=== PATIENT | male | born 1950 | race Caucasian/White ===

== ENCOUNTER 2021-09-02 17:22 | Inpatient (IN) | payer MEDICAID, SELFPAY ==
--- NOTE | ~2021-09-02 | XR_ITS ---
EXAMINATION: XR CHEST CLINICAL INFORMATION: Fever COMPARISON: None TECHNIQUE: Frontal view of the chest was obtained. FINDINGS: No airspace consolidation. No pleural effusion or pneumothorax. Cardiomediastinal silhouette is within normal limits no evidence of pulmonary edema. No acute osseous injury identified. XR/XR chest 1V IMPRESSION: No acute pulmonary process.
--- NOTE | ~2021-09-02 | CT_ITS ---
EXAMINATION: CT HEAD WITHOUT CONTRAST CLINICAL INFORMATION: Altered mental status, evaluate for stroke. COMPARISON: None. TECHNIQUE: Contiguous axial imaging was performed from the skull base to vertex without intravenous administration of contrast. This CT examination was performed using dose optimization techniques as appropriate, variously including the following: *Automated exposure control *Adjustment of mA and/or kV according to patient size (this includes techniques or standardized protocols for targeted exams where dose is matched to indication/reason for exam; i.e. extremities or head) *Use of iterative reconstruction technique DLP: 503 mGy-cm FINDINGS: Age indeterminate small hypodensity in the left thalamus (13:26). There is no evidence of acute intracranial hemorrhage or edematous territorial infarction. Scattered hypoattenuation in the periventricular and deep white matter are consistent with moderate microangiopathy. Mendes-white matter differentiation is preserved. Proportional prominence of the ventricles and sulcal spaces. No evidence for obstructive hydrocephalus. No abnormal mass effect or midline shift. No extra-axial fluid collections. No acute soft tissue or osseous abnormalities. The mastoid air cells and paranasal sinuses are clear. CT/CT head/brain wo con IMPRESSION: Age indeterminate small infarct in the left thalamus. No prior images are available for comparison. For further characterization recommend correlation with an MR of the brain if clinically deemed appropriate. This critical result was discussed with Thong Tavarez MD at 09/03/2021 10:52 AM and it was ascertained that the content and urgency of the report was understood at the time of direct communication.
--- NOTE | ~2021-09-02 | CT_ITS ---
EXAMINATION: CT ABDOMEN AND PELVIS WITHOUT CONTRAST CLINICAL INFORMATION: Sepsis, evaluate for source. COMPARISON: None. TECHNIQUE: Multidetector volumetric imaging was performed from the superior aspect of the liver through the pubic symphysis. Sagittal and coronal reformatted images were obtained on the technologist's workstation. This CT examination was performed using dose optimization techniques as appropriate, variously including the following: *Automated exposure control *Adjustment of mA and/or kV according to patient size (this includes techniques or standardized protocols for targeted exams where dose is matched to indication/reason for exam; i.e. extremities or head) *Use of iterative reconstruction technique DLP: 503 mGy-cm FINDINGS: LUNG BASES: Motion limits evaluation of small pulmonary nodules and parenchymal details. Accounting for these limitations, there are questionable multifocal patchy opacities and bronchial wall thickening in the lower lobes. Coronary calcifications partially imaged. Bilateral symmetric gynecomastia noted. LIVER, GALLBLADDER, AND BILIARY TREE: Limited examination secondary to artifacts from positioning of the upper extremities and lack of intravenous. Accounting for these limitations, no discrete focal liver abnormalities noted. The gallbladder is distended without evidence of radiopaque calculi, wall thickening or pericholecystic free fluid. No biliary ductal dilatation. PANCREAS: Limited noncontrast examination, unremarkable. SPLEEN: Limited noncontrast examination, unremarkable. ADRENAL GLANDS: No adrenal lesion. KIDNEYS AND URETERS: Limited noncontrast examination with moderate right hydroureteronephrosis up to the level of the urinary bladder. An obstructive calculus is not visualized. Normal appearance of the left kidney. No perinephric fat stranding. BLADDER: Displaced to the right by large rectal distention. No intraluminal calculi or significant perivesical fat stranding. GASTROINTESTINAL TRACT: Large amount of stool in the rectum with mild rectal wall thickening and perirectal fat stranding. The stomach and the small bowel are nondilated. The appendix is not well-visualized, however there are no regional inflammatory changes to suspect acute appendicitis. ABDOMINAL WALL: No significant hernia is appreciated. Mild asymmetric anasarca along the soft tissues of the left gluteal region. LYMPH NODES: Evaluation of lymph nodes is limited due to paucity of intra-abdominal fat and lack of intravenous contrast. However, accounting for these limitations, no bulky lymphadenopathy is noted. VASCULAR: Aortoiliac atherosclerosis. The abdominal aorta is of normal diameter. PELVIC VISCERA: Enlarged prostate with coarse calcifications. OSSEOUS STRUCTURES: Degenerative changes of the spine. No acute or aggressive-appearing osseous abnormalities. CT/CT abdomen pelvis wo con IMPRESSION: 1. Large amount of rectal stool content with wall thickening and perirectal fat stranding suggesting stercoral colitis in the appropriate clinical context. 2. Moderate right hydroureteronephrosis up to the level of the urinary bladder, possibly due to reflux or mass effect from the significantly distended rectum as a discrete obstructive calculus is not identified. 3. Query patchy airspace opacities in the lung bases, limitedly assessed due to motion, correlate for signs of a respiratory infectious or inflammatory process.
--- NOTE | ~2021-09-02 | US_ITS ---
EXAMINATION: RENAL ULTRASOUND RIGHT CLINICAL INFORMATION: Follow-up hydronephrosis COMPARISON: Previous CT 09/03/2021 TECHNIQUE: Grayscale and color imaging of the right kidney FINDINGS: Right kidney is normal in size and contour and measures 11 x 6.6 x 5.2 cm. Renal cortical thickness and echogenicity is normal. There is question of a small 2 mm stone in the midpole. There is no hydronephrosis, renal mass or perinephric collection. US/US renal RT IMPRESSION: No right hydronephrosis. Question small right renal stone.
--- NOTE | 2021-09-02 17:36 | ED_ITS ---
HPI - Altered Mental Status General Chief Complaint: General Medical Stated Complaint: UNRESPOSIVE Time Seen by Provider: 09/02/21 17:36 Source: EMS Mode of arrival: EMS Limitations: altered mental status History of Present Illness HPI narrative: patient is nonverbal coming from the intermediate, the last 2 days he is worse. No history of fever. complaint: decreased responsiveness Onset (ago): day(s) Severity: moderate Context: other (intermediate resident) Related Data Home Medications Medication Instructions Recorded Confirmed acetaminophen 500 mg tablet 1,000 mg PO TID 09/02/21 09/02/21 benztropine 0.5 mg tablet 0.5 mg PO BID 09/02/21 09/02/21 cholecalciferol (vitamin D3) 1,250 1,250 mcg PO QMONTH 09/02/21 09/02/21 mcg (50,000 unit) capsule gabapentin 400 mg capsule 400 mg PO TID 09/02/21 09/02/21 lactulose 10 gram/15 mL oral 30 ml PO DAILY 09/02/21 09/02/21 solution lorazepam 1 mg tablet 1 mg PO TID 09/02/21 09/02/21 omeprazole 40 mg capsule,delayed 40 mg PO DAILY 09/02/21 09/02/21 release risperidone 2 mg tablet 2 mg PO BID 09/02/21 09/02/21 Allergies Allergy/AdvReac Type Severity Reaction Status Date / Time No Known Allergies Allergy Verified 09/02/21 17:53 Review of Systems Review of Systems: Yes Unobtainable due to mental status PMFSH Social History Social History Advance Directives: No Advance Directives Information Provided: No Physical Exam ED Vital Signs: Vital Signs - 24 hr 09/02/21 17:45 09/02/21 17:51 09/02/21 19:14 Temperature 101.0 F H 99.1 F Pulse Rate 43 L 120 H Respiratory Rate 14 21 H Blood Pressure 130/65 134/69 Pulse Oximetry 95 97 Oxygen Delivery Method Room Air Room Air 09/02/21 20:15 09/02/21 22:00 Temperature 98.6 F Pulse Rate 110 H 111 H Respiratory Rate 22 H 19 Blood Pressure 113/53 L 118/71 Pulse Oximetry 97 96 Oxygen Delivery Method Room Air Room Air BMI result Body Mass Index 19.9 Const Other: contracted non verbal, cachectic, frail Limitations: altered mental status HENMT Other: very dry oral pharynx Head: Yes normal to inspection Ears: external ears normal General nose exam: Normal external nose present Throat: Yes posterior oropharynx normal Eyes General: appearance normal, both eyes and all related structures Neck Neck: Yes normal visual inspection Chest Chest palpation & inspection: normal inspection of the chest Resp Auscultation: clear to auscultation bilaterally Cardio Jugular venous distension: no JVD Rate: regular rate Rhythm: regular rhythm Heart sounds: S1 normal heart sound present and S2 normal heart sound present GI Inspection: Yes normal to inspection Palpation (GI): Soft to palpation, nontender and No hepatosplenomegaly present Auscultation: normal bowel sounds General: Yes no CVA tenderness Back/Spine/Pelvis Back: no CVA tenderness Skin General skin exam: no rashes or lesions noted Extrem Other: contracted Psych Appearance: grossly normal MDM - Altered Mental Status Lab Data Result diagrams: 09/02/21 18:00 09/02/21 23:15 Labs: Lab Results 09/02/21 09/02/21 09/02/21 Range/Units 18:00 18:00 18:15 WBC 17.1 H (4.8-10.8) X10*3/uL RBC 5.27 (4.60-5.80) X10*6/uL Hgb 16.6 (14.0-18.0) g/dl Hct 53.7 H (42.0-52.0) % MCV 101.9 H (80.0-98.0) fL MCH 31.5 (27.0-33.0) pg MCHC 30.9 L (31.0-36.0) g/dl RDW 13.9 (11.0-16.0) % Plt Count 133 L (160-400) X10*3/uL MPV 13.2 H (9.4-12.4) fL Immature Gran % (Auto) 0.4 (0.0-0.4) % Neut % (Auto) 86.8 H (45-73) % Lymph % (Auto) 7.6 L (20-40) % [place] % (Auto) 5.1 (2-11) % Eos % (Auto) 0.0 (0-4) % Baso % (Auto) 0.1 (0-2) % Lymph # (Auto) 1.3 (1.2-4.9) X10*3/uL [place] # (Auto) 0.9 (0.1-1.2) X10*3/uL Eos # (Auto) 0.0 (0.0-0.4) X10*3/uL Baso # (Auto) 0.0 (0.0-0.2) X10*3/uL Abs Immat Gran (auto) 0.07 H (0.00-0.03) X10*3/uL Absolute Neuts (auto) 14.9 H (2.0-8.3) x10*3/uL Absolute Nucleated RBC 0.000 (0.0-0.012) X10*3/uL Nucleated RBC % (auto) 0.0 (0.0-0.2) /100WBC PT 14.9 H (10.0-13.1) SEC INR 1.3 H (0.9-1.1) APTT 26.4 (26.0-36.4) SEC Lactic Acid (0.5-2.0) mmol/L Troponin I High Sens 76.5 H (<3.5-35.0) ng/L Urine Color Urine Appearance Urine pH (5.0-8.0) Ur Specific [place] (1.005-1.025) Urine Protein (NEG-TRACE) MG/DL Urine Glucose (UA) (NEG) MG/DL Urine Ketones (NEG) MG/DL Urine Blood (NEG) Urine Nitrite (NEG) Ur Leukocyte Esterase (NEG) Urine RBC (0) /HPF Urine WBC (0-4) /HPF Ur Squamous Epith Cells /LPF Calcium Oxalate Crystal /LPF Urine Bacteria /LPF COVID-19 (CARLA) (Negative) COVID-19 Clin Com 09/02/21 09/02/21 09/02/21 Range/Units 18:41 20:33 21:40 WBC (4.8-10.8) X10*3/uL RBC (4.60-5.80) X10*6/uL Hgb (14.0-18.0) g/dl Hct (42.0-52.0) % MCV (80.0-98.0) fL MCH (27.0-33.0) pg MCHC (31.0-36.0) g/dl RDW (11.0-16.0) % Plt Count (160-400) X10*3/uL MPV (9.4-12.4) fL Immature Gran % (Auto) (0.0-0.4) % Neut % (Auto) (45-73) % Lymph % (Auto) (20-40) % [place] % (Auto) (2-11) % Eos % (Auto) (0-4) % Baso % (Auto) (0-2) % Lymph # (Auto) (1.2-4.9) X10*3/uL [place] # (Auto) (0.1-1.2) X10*3/uL Eos # (Auto) (0.0-0.4) X10*3/uL Baso # (Auto) (0.0-0.2) X10*3/uL Abs Immat Gran (auto) (0.00-0.03) X10*3/uL Absolute Neuts (auto) (2.0-8.3) x10*3/uL Absolute Nucleated RBC (0.0-0.012) X10*3/uL Nucleated RBC % (auto) (0.0-0.2) /100WBC PT (10.0-13.1) SEC INR (0.9-1.1) APTT (26.0-36.4) SEC Lactic Acid 5.1 H* (0.5-2.0) mmol/L Troponin I High Sens (<3.5-35.0) ng/L Urine Color Urine Appearance Urine pH (5.0-8.0) Ur Specific [place] (1.005-1.025) Urine Protein (NEG-TRACE) MG/DL Urine Glucose (UA) (NEG) MG/DL Urine Ketones (NEG) MG/DL Urine Blood (NEG) Urine Nitrite (NEG) Ur Leukocyte Esterase (NEG) Urine RBC (0) /HPF Urine WBC (0-4) /HPF Ur Squamous Epith Cells /LPF Calcium Oxalate Crystal /LPF Urine Bacteria /LPF COVID-19 (CARLA) Invalid Negative (Negative) COVID-19 Clin Com See Note See Note 09/02/21 09/02/21 Range/Units 22:14 22:35 WBC (4.8-10.8) X10*3/uL RBC (4.60-5.80) X10*6/uL Hgb (14.0-18.0) g/dl Hct (42.0-52.0) % MCV (80.0-98.0) fL MCH (27.0-33.0) pg MCHC (31.0-36.0) g/dl RDW (11.0-16.0) % Plt Count (160-400) X10*3/uL MPV (9.4-12.4) fL Immature Gran % (Auto) (0.0-0.4) % Neut % (Auto) (45-73) % Lymph % (Auto) (20-40) % [place] % (Auto) (2-11) % Eos % (Auto) (0-4) % Baso % (Auto) (0-2) % Lymph # (Auto) (1.2-4.9) X10*3/uL [place] # (Auto) (0.1-1.2) X10*3/uL Eos # (Auto) (0.0-0.4) X10*3/uL Baso # (Auto) (0.0-0.2) X10*3/uL Abs Immat Gran (auto) (0.00-0.03) X10*3/uL Absolute Neuts (auto) (2.0-8.3) x10*3/uL Absolute Nucleated RBC (0.0-0.012) X10*3/uL Nucleated RBC % (auto) (0.0-0.2) /100WBC PT (10.0-13.1) SEC INR (0.9-1.1) APTT (26.0-36.4) SEC Lactic Acid (0.5-2.0) mmol/L Troponin I High Sens 73.0 H (<3.5-35.0) ng/L Urine Color YELLOW Urine Appearance CLEAR Urine pH 5.5 (5.0-8.0) Ur Specific [place] >= 1.030 H (1.005-1.025) Urine Protein NEG (NEG-TRACE) MG/DL Urine Glucose (UA) 100 H (NEG) MG/DL Urine Ketones 5 (NEG) MG/DL Urine Blood 3+ H (NEG) Urine Nitrite NEG (NEG) Ur Leukocyte Esterase NEG (NEG) Urine RBC 76-150 H (0) /HPF Urine WBC 0-2 (0-4) /HPF Ur Squamous Epith Cells TRACE /LPF Calcium Oxalate Crystal TRACE /LPF Urine Bacteria TRACE /LPF COVID-19 (CARLA) (Negative) COVID-19 Clin Com Imaging Data Chest x-ray: Radiologist's impression: FINDINGS: No airspace consolidation. No pleural effusion or pneumothorax. Cardiomediastinal silhouette is within normal limits no evidence of pulmonary edema. No acute osseous injury identified. XR/XR chest 1V IMPRESSION: No acute pulmonary process. ? ECG Data ECG #1: Attestation: I personally reviewed and interpreted this ECG as follows: Interpretation: sinus 110 with PVCs, no st or twave changes Discharge Plan Discharge Clinical Impression: Sepsis Patient Disposition: Admitted As Inpatient
[2021-09-02 17:45] VITALS: BP 130/65; PULSE 43; RESP 14; O2SAT 95; BMI 19.9
[2021-09-02 17:51] VITALS: TEMP 38.3
[2021-09-02] MEDS: Acetaminophen Supp 650 MG SUPP.RECT PR (18:05)
[2021-09-02 18:07] LABS: MANUAL DIFF FLAG NO
[2021-09-02 18:30] LABS: Basophils Percent Auto 0.1 % (0-2); SCAN SMEAR FLAG 1
[2021-09-02 18:32] LABS: Hematocrit 53.7 % (42.0-52.0); Hemoglobin 16.6 g/dl (14.0-18.0); Imm Gran Abs Auto 0.07 X10*3/uL (0.00-0.03); Imm Gran Pct Auto 0.4 % (0.0-0.4); Lymphocytes Absolute Auto 1.3 X10*3/uL (1.2-4.9); Lymphocytes Percent Auto 7.6 % (20-40); Mean Corpuscular HGB Conc 30.9 g/dl (31.0-36.0); Mean Corpuscular Hemoglobin 31.5 pg (27.0-33.0); Mean Corpuscular Volume 101.9 fL (80.0-98.0); Mean Platelet Volume 13.2 fL (9.4-12.4); Monocytes Absolute Auto 0.9 X10*3/uL (0.1-1.2); Monocytes Percent Auto 5.1 % (2-11); Neutrophils Absolute Auto 14.9 x10*3/uL (2.0-8.3); Neutrophils Percent Auto 86.8 % (45-73); Platelet Count 133 X10*3/uL (160-400); Red Blood Count 5.27 X10*6/uL (4.60-5.80); Red Cell Distribution Width 13.9 % (11.0-16.0); White Blood Count 17.1 X10*3/uL (4.8-10.8)
[2021-09-02 18:41] LABS: PLT ABN DIST 1
[2021-09-02 18:47] LABS: INTERNATIONAL NORM RATIO 1.3 (0.9-1.1); Prothrombin Time 14.9 SEC (10.0-13.1)
[2021-09-02 18:50] LABS: Partial Thromboplastin Time 26.4 SEC (26.0-36.4)
--- NOTE | 2021-09-02 19:04 | PC.NURSE ---
Assumed care of this pt. at 1900 - report from Dorothy Armas RN
--- NOTE | 2021-09-02 19:10 | ECG_ITS ---
Test Reason : cp Blood Pressure : / mmHG Vent. Rate : 116 BPM Atrial Rate : 116 BPM P-R Int : 124 ms QRS Dur : 090 ms QT Int : 326 ms P-R-T Axes : 080 045 113 degrees QTc Int : 453 ms Sinus tachycardia with Premature supraventricular complexes and with occasional Premature ventricular complexes Nonspecific T wave abnormality Abnormal ECG No previous ECGs available Referred By: Jj Singh Electronically Signed By:JOHANNA HERNANDEZ
[2021-09-02 19:14] VITALS: BP 134/69; PULSE 120; RESP 21; TEMP 37.3; O2SAT 97
[2021-09-02 19:41] LABS: Lactic Acid 5.1 mmol/L (0.5-2.0)
[2021-09-02 19:42] LABS: Troponin-I High Sensitivity 76.5 ng/L (<3.5-35.0)
[2021-09-02] MEDS: Piperacillin Sodium/Tazobactam 3.375 GM in 0.9 % Sodium Chloride 50 ML IV (19:59)
[2021-09-02] MEDS: vancomycin HCL 1,500 MG in 0.9 % Sodium Chloride 500 ML 333.33 MG IV (20:08)
[2021-09-02 20:15] VITALS: BP 113/53; PULSE 110; RESP 22; TEMP 37; O2SAT 97
--- NOTE | 2021-09-02 20:21 | PHA.MEDREC ---
Pharmacy Consult ? Medication Reconciliation Pharmacy has completed the medication reconciliation.
[2021-09-02 21:03] LABS: Reflex Lactate? Lactic Acid Added
--- NOTE | 2021-09-02 21:07 | HE.PHANOTE ---
RE BMP RESULTS CALLED LAB SINCE BMP HAS BEEN PENDING FOR ALMOST 3 HOURS. PER LAB, ED WAS CALLED TWICE TO REDRAW. I CALLED ED AT 2100 AND EXPLAINED I NEEDED SCR TO PROPERLY DOSE VANCOMYCIN PER PROTOCOL. WILL WAIT UNTIL 2300 TO SEE IF LAB IS RAN. THANKS KARYN
[2021-09-02 21:09] LABS: COVID-19 Test Invalid (Negative); IDNOW Serial# 55D5AD1C
--- NOTE | 2021-09-02 21:50 | PC.NURSE ---
Lab draws delayed a this time d/t techs and RNs being unable to draw pt.
[2021-09-02 22:00] VITALS: BP 118/71; PULSE 111; RESP 19; O2SAT 96
[2021-09-02 22:08] LABS: COVID-19 Test Negative (Negative)
--- NOTE | 2021-09-02 22:11 | PC.NURSE ---
OK for Q2hrs VS per Juan Singh MD
[2021-09-02 22:53] LABS: Appearance Urine CLEAR; Color Urine YELLOW; Glucose Urine UA 100 MG/DL (NEG); Leukocyte Esterase Urine NEG (NEG); Nitrite Urine NEG (NEG); PH 5.5 (5.0-8.0); Specific Gravity - Urine >= 1.030 (1.005-1.025); UACC Culture Trigger NO; Urine Blood 3+ (NEG); Urine Ketones 5 MG/DL (NEG); Urine Protein NEG (NEG-TRACE)
[2021-09-02 23:20] LABS: Bacteria Urine TRACE /LPF; Calcium Oxalate Crystals Urine TRACE /LPF; Squamous Epithelial Cell Urine TRACE /LPF; WBC Urine 0-2 /HPF (0-4)
[2021-09-02 23:48] LABS: Troponin-I High Sensitivity 71.4 ng/L (<3.5-35.0)
[2021-09-02 23:53] LABS: ~Lactic Acid-LAB USE ONLY 3.3 mmol/L (0.5-2.0)
[2021-09-02 23:57] LABS: Alanine Aminotransferase 21 U/L (0-40); Albumin Level 3.5 g/dL (3.5-5.0); Alkaline Phosphatase 68 U/L (39-117); Anion Gap 20 (12-20); Aspartate Amino Transferase 16 U/L (5-37); Bilirubin Direct 0.6 mg/dL (0.0-0.5); Bilirubin Total 1.3 mg/dL (0.0-1.0); Calcium 8.6 mg/dL (8.4-10.2); Carbon Dioxide 23 mmol/L (22-29); Chloride 129 mmol/L (96-108); Creatinine Clr Calc Pharmacy 16.5; Estimated Glomerular Filt Rate 19; Glucose Random 438 mg/dL (60-115); Potassium 3.9 mmol/L (3.3-5.1); Sodium 168 mmol/L (135-145)
[2021-09-03] VITALS: BP 134/41; PULSE 113; RESP 22; TEMP 36.9; O2SAT 97
[2021-09-03 00:25] LABS: Blood Urea Nitrogen 127 mg/dL (9-16)
[2021-09-03] MEDS: Insulin Regular, Human 100 UNIT/ML 3 ML VIAL 10 UNIT IVPUSH (00:32)
[2021-09-03] MEDS: 0.9 % Sodium Chloride 1,000 ML 999 ML IV (00:36)
[2021-09-03 01:21] LABS: Reflex Lactate? 2 Y
--- NOTE | 2021-09-03 01:46 | PC.NURSE ---
Pt. noted to be clammy and cold to touch. Checked POC which was 274. Re-checking rectal temp. now - see Vital Signs in Worklist
[2021-09-03 01:47] VITALS: BP 114/66; PULSE 106; RESP 14; TEMP 35.9; O2SAT 96
[2021-09-03] MEDS: Sodium Chloride 0.45 % 1,000 ML 125 ML IVCONT ×3 (01:55→15:51)
[2021-09-03 02:04] LABS: ~Lactic Acid-LAB USE ONLY 1.6 mmol/L (0.5-2.0)
[2021-09-03 04:00] VITALS: BP 95/68; PULSE 102; RESP 22; TEMP 36.4; O2SAT 96
[2021-09-03 07:22] VITALS: BP 103/63; PULSE 104; RESP 18; O2SAT 95
--- NOTE | 2021-09-03 09:21 | PM.IMHP ---
History of Present Illness Date of Service: 09/03/21 Chief Complaint: changes in mental status This is a 71 year old male, who is contracted and non-verbal at baseline, presents to [facility] ED from local group home facility. Due to the patients baseline condition, history is obtained from the ED providers / triage notes. After several days of poor oral intake and changes in mental status, he has been sent to the SNF. Per triage note, there were no reports of fever. Upon arrival to the ED the patient was found to be febrile with a TMax of 101. He was tachycardic in the 120 with stable BP. Chest XR was clear. Blood work revealed luekocytosis, NELLY with SCr over 3 and severe hypernatremia with SNa 168. Sugars were over 400. He was given 30cc/kg fluid bolus, IV vancomcyin/zosyn, IV insulin. He has been started on 1/2 normal saline @ 125 cc/hr and now will be admitted for further care. Review of Systems Review of Systems: unable to review due to patients baseline status [facility] Medical History (Updated 09/03/21 @ 09:37 by Corby Benito MD) Alzheimer's dementia Anxiety Valle esophagus Frontotemporal dementia GERD (gastroesophageal reflux disease) Urinary incontinence Vascular dementia Vitamin D deficiency Pertinent family history: unable to determine family history/surgical history/ social history due to patients mental status Social History Advance Directives: No Advance Directives Information Provided: No Meds Allergies Allergy/AdvReac Type Severity Reaction Status Date / Time No Known Allergies Allergy Verified 09/02/21 17:53 Active Medications: Current Medications Acetaminophen (Acetaminophen Supp 650 Mg Supp.Rect) 650 mg DC Q6H PRN PRN Reason: Pain, Mild (Pain Scale 1-3) Heparin Sodium (Porcine) (Heparin Sodium,Porcine 5,000 Unit/Ml Vial) 5,000 unit SUBCUT Q12H LINO Sodium Chloride () 1,000 mls @ 125 mls/hr IVCONT .Q8H LINO Last Admin: 09/03/21 07:27 Dose: 125 mls/hr Ondansetron HCl (Ondansetron Hcl 4 Mg/2 Ml Vial) 4 mg IVPUSH Q8H PRN PRN Reason: Nausea and Vomiting Pharmacy Consult (Consult Rx Perform Med Rec) 1 each MISCELLANE ONCE PRN PRN Reason: Consult order Sodium Chloride (0.9 % Sodium Chloride Flush 3 Ml Syringe) 3 ml IVFLUSH QSHIFT [facility] Home Medications Medication Instructions Recorded Confirmed Last Taken Type acetaminophen 500 mg tablet 1,000 mg PO TID 09/02/21 09/02/21 09/01/21 History benztropine 0.5 mg tablet 0.5 mg PO BID 09/02/21 09/02/21 09/01/21 History cholecalciferol (vitamin D3) 1,250 1,250 mcg PO QMONTH 09/02/21 09/02/21 08/31/21 History mcg (50,000 unit) capsule gabapentin 400 mg capsule 400 mg PO TID 09/02/21 09/02/21 09/01/21 History lactulose 10 gram/15 mL oral 30 ml PO DAILY 09/02/21 09/02/21 09/01/21 History solution lorazepam 1 mg tablet 1 mg PO TID 09/02/21 09/02/21 09/01/21 History omeprazole 40 mg capsule,delayed 40 mg PO DAILY 09/02/21 09/02/21 09/01/21 History release risperidone 2 mg tablet 2 mg PO BID 09/02/21 09/02/21 09/01/21 History Physical Exam Vital Signs and Narrative: Vital Signs: Last Vital Signs Temp 97.6 F 09/03/21 04:00 Pulse 104 H 09/03/21 07:22 Resp 18 09/03/21 07:22 BP 103/63 09/03/21 07:22 Pulse Ox 95 09/03/21 07:22 O2 Del Method 09/03/21 07:22 BMI result Body Mass Index 19.9 Const: Other: Constitutional - Awake but not alert; frail and cacehtic in appearance; contracted Eyes - PERRLA, EOMI Cardiovascular - S1S2, RRR, No edema Respiratory - Normal lung expansion, Normal respiratory effort, No respiratory distress, CTA bilaterally Gastrointestinal - NT / ND; +BS; No rebound or guarding - No CVA tenderness Extremities - no calf tenderness bilaterally, no swelling Musculoskeletal - Normal inspection, normal ROM Skin - Warm/Dry, so decubit appreciated Neurological - non-verbal; does not obey commands; contracted Psychological - Appropriate affect Results Labs CBC and Chem 7: 09/02/21 18:00 09/02/21 23:15 Labs: Laboratory Results - last 24 hr 09/02/21 09/02/21 09/02/21 18:00 18:15 18:41 MCV 101.9 H MCH 31.5 MCHC 30.9 L RDW 13.9 Plt Count 133 L MPV 13.2 H Immature Gran % (Auto) 0.4 Neut % (Auto) 86.8 H Lymph % (Auto) 7.6 L [place] % (Auto) 5.1 Eos % (Auto) 0.0 Baso % (Auto) 0.1 Lymph # (Auto) 1.3 [place] # (Auto) 0.9 Eos # (Auto) 0.0 Baso # (Auto) 0.0 Abs Immat Gran (auto) 0.07 H Absolute Neuts (auto) 14.9 H Absolute Nucleated RBC 0.000 Nucleated RBC % (auto) 0.0 PT 14.9 H INR 1.3 H APTT 26.4 Anion Gap Estim Creat Clear Calc Estimated GFR Random Glucose Lactic Acid 5.1 H* Lactic Acid F/U @ 2Hr Lactic Acid F/U @ 4Hr Calcium Total Bilirubin Direct Bilirubin AST ALT Alkaline Phosphatase Total Protein Albumin Urine Color Urine Appearance Urine pH Ur Specific [place] Urine Protein Urine Glucose (UA) Urine Ketones Urine Blood Urine Nitrite Ur Leukocyte Esterase Urine RBC Urine WBC Ur Squamous Epith Cells Calcium Oxalate Crystal Urine Bacteria COVID-19 (CARLA) COVID-19 Clin Com 09/02/21 09/02/21 09/02/21 20:33 21:40 22:35 MCV MCH MCHC RDW Plt Count MPV Immature Gran % (Auto) Neut % (Auto) Lymph % (Auto) [place] % (Auto) Eos % (Auto) Baso % (Auto) Lymph # (Auto) [place] # (Auto) Eos # (Auto) Baso # (Auto) Abs Immat Gran (auto) Absolute Neuts (auto) Absolute Nucleated RBC Nucleated RBC % (auto) PT INR APTT Anion Gap Estim Creat Clear Calc Estimated GFR Random Glucose Lactic Acid Lactic Acid F/U @ 2Hr Lactic Acid F/U @ 4Hr Calcium Total Bilirubin Direct Bilirubin AST ALT Alkaline Phosphatase Total Protein Albumin Urine Color YELLOW Urine Appearance CLEAR Urine pH 5.5 Ur Specific [place] >= 1.030 H Urine Protein NEG Urine Glucose (UA) 100 H Urine Ketones 5 Urine Blood 3+ H Urine Nitrite NEG Ur Leukocyte Esterase NEG Urine RBC 76-150 H Urine WBC 0-2 Ur Squamous Epith Cells TRACE Calcium Oxalate Crystal TRACE Urine Bacteria TRACE COVID-19 (CARLA) Invalid Negative COVID-19 Clin Com See Note See Note 09/02/21 09/02/21 09/03/21 23:15 23:15 01:44 MCV MCH MCHC RDW Plt Count MPV Immature Gran % (Auto) Neut % (Auto) Lymph % (Auto) [place] % (Auto) Eos % (Auto) Baso % (Auto) Lymph # (Auto) [place] # (Auto) Eos # (Auto) Baso # (Auto) Abs Immat Gran (auto) Absolute Neuts (auto) Absolute Nucleated RBC Nucleated RBC % (auto) PT INR APTT Anion Gap 20 Estim Creat Clear Calc 16.5 Estimated GFR 19 Random Glucose 438 H* Lactic Acid Lactic Acid F/U @ 2Hr 3.3 H* Lactic Acid F/U @ 4Hr 1.6 Calcium 8.6 Total Bilirubin 1.3 H Direct Bilirubin 0.6 H AST 16 ALT 21 Alkaline Phosphatase 68 Total Protein 7.0 Albumin 3.5 Urine Color Urine Appearance Urine pH Ur Specific [place] Urine Protein Urine Glucose (UA) Urine Ketones Urine Blood Urine Nitrite Ur Leukocyte Esterase Urine RBC Urine WBC Ur Squamous Epith Cells Calcium Oxalate Crystal Urine Bacteria COVID-19 (CARLA) COVID-19 Clin Com Imaging Radiologist's Impressions: Impressions Chest X-Ray 09/02/21 18:19 IMPRESSION: No acute pulmonary process. Assessment and Plan (1) NELLY (acute kidney injury): Status: Acute Plan This is a 71 year old male with a H dementia -- multiple types, chronically contracted and non-verbal who presents to the ED with decreased oral intake and responsiveness of several days duration. He is noted to be severely dehydrated with NELLY and hypernatremia. He will be admitted for further work up. 1. NELLY, Hypernatremia, Severe dehydration pre-renal due to poor oral intake Given 30cc/kg bolus of NS; now on 1/ NS @ 125 cc/hr; repeat BMP now and then likely q6 hours until below 150 Nephrology consult intake and output -- will place [place] cath 2. SIRS no definitive source, hence cannot say the patient has severe sepsis at this time given empiric zosyn / vancomcyin -- will continue renally dosed check ct abd 3. Toxic/Metabolic encephalopathy due to #1 and #[address] head to rule out intracranial pahtology NPO until seen by speech 4. Hyperglycemia no prior reports of DM and he is not on any meds check a1C, check POC now POC q6h thereafter 5. Hyperbilirubinemia benign abdominal exam trend 6. Mood continue baseline meds once seen by speech Presumed full code -- to obtain MOLST form from [facility] DVT pptx -- subcut. heparin In light of the patients NELLY and significant hypernatremia, and the possibility of sepsis -- I anticipate a medically necessary inpatient hospitalization which is likely to span at least 2 midnights for treatment with IV antibiotics/IVF/specialty consultation and to monitor response. This cannot be done in a less acute setting. Quality Stroke Does the patient have a stroke diagnosis?: No VTE Prior VTE?: No VTE Risk Level:: Medical - moderate - high VTE Device Contraindication: Treatment Not Tolerated VTE Drug Contraindication: N/A - Med Ordered
[2021-09-03] MEDS: Heparin Sodium,Porcine 5,000 UNIT/ML VIAL 5000 UNIT SUBCUT ×2 (10:13→22:16)
[2021-09-03] MEDS: Piperacillin Sodium/Tazobactam 2.25 GM in 0.9 % Sodium Chloride 50 ML IV ×2 (10:13→17:26)
--- NOTE | 2021-09-03 10:58 | MHC.SL.SWA ---
Speech Pathologist Impression: Oropharyngeal dysphagia Risk of Aspiration Due to: Neurological Condition Poor PO Intake Reduced Cognition Dysphasia Diet Status: Upgrade Liquid Consistency and Strategies for Safe Swallow: Liquid Intake Recommendation: Thin Liquid Intake Strategies: Small Sips No Straws Solid Food Consistency: Dietary Recommendations: Pureed (NDD1) Additional Modifications to Solid Foods: Recommend upgrade from NPO to PUREED solids (NDD1) and THIN liquids, pills CRUSHED in PUREE. Confirmed with nurse from [facility] this morning- This is pt's baseline diet. Pt requires total 1:1 assistance feeding and monitoring for any clinical signs of aspiration with PO intake. Strict aspiration precautions with PO intake. One bite at a time, ensure oral cavity is clear before presenting more bites. Pt may not open mouth with verbal command, but does open mouth reflexively when presented with an empty spoon. Improved coordination when pt drank by teaspoon. Pt was able to sip by controlled cup, but there was some spillage anteriorly. Ensure pt is sitting upright 90 degrees for PO intake. Frequent oral care before and after PO intake. Sent [place] Message to , RN, RD w/ recommendations. DATA INTEGRATION ARCHITECT will continue to follow. Oral Medication Intake: Crushed with Puree Please contact the pharmacy regarding appropriate crushable or liquid drug formulations that are available whenever modified delivery is recommended. Compensatory Strategies and Precautions to be Taken for Safe Swallow: Sitting Upright (90 deg) No Straw Liquids from Spoon Small Bites and Sips Rate of Ingestion Change Oral Check Supervision While Eating and Drinking for Safe Swallow: Total Assistance (1:1) Swallowing Recommended Treatments: Compens. Strategy Educat. Recommendation for Speech: Inpatient Speech Therapy Comment: DATA INTEGRATION ARCHITECT will continue to follow. Efficiency Clerk Clinican/Clinical Fellow: No Supervisory Statement: I have reviewed and agree with the student/clinical fellow's documentation: N/A Speech Language Pathologist: Lorelei Rodriguez M.A., [facility]-DATA INTEGRATION ARCHITECT
[2021-09-03 11:07] LABS: Estimated Average Glucose 140 mg/dL; Hemoglobin A1c % 6.5 %
[2021-09-03 11:22] LABS: Alanine Aminotransferase 20 U/L (0-40); Albumin Level 3.2 g/dL (3.5-5.0); Alkaline Phosphatase 67 U/L (39-117); Aspartate Amino Transferase 24 U/L (5-37); Bilirubin Direct 0.6 mg/dL (0.0-0.5); Bilirubin Total 1.6 mg/dL (0.0-1.0); Calcium 8.1 mg/dL (8.4-10.2); Creatinine Clr Calc Pharmacy 22.1; Estimated Glomerular Filt Rate 27; Glucose Random 285 mg/dL (60-115); Total Protein 6.7 g/dL (6.5-8.0)
[2021-09-03 11:24] LABS: Anion Gap 23 (12-20); Carbon Dioxide 16 mmol/L (22-29); Chloride 134 mmol/L (96-108); Potassium 3.7 mmol/L (3.3-5.1); Sodium 169 mmol/L (135-145)
--- NOTE | 2021-09-03 11:25 | PM.CNNEP ---
History of Present Illness Reason for Consult Consult date: 09/03/21 Chief Complaint Chief complaint: AMS History of Present Illness Narrative: 71 year old male, who is contracted and non-verbal at baseline, presented to [facility] ED from local long term facility. Due to the patients baseline condition, history is obtained from records and primary caring team.?He has been having poor oral intake and changes in mental status. There are no reports of fever. Upon arrival to the ED the patient was found to be febrile with a TMax of 101. He was tachycardic in the 120 with stable BP. Chest X Ray was clear. Blood work revealed leukocytosis, NELLY with SCr over 3 and severe hypernatremia with SNa 168. Blood sugars were over 400.? He was given IV fluids, IV vancomcyin/zosyn, IV insulin and was admitted for further care. Nephrology has been consulted to assist in his clinical care during his current hospital stay Review of Systems Review of Systems Yes Unobtainable due to mental condition PMFSH Past Medical History Medical History (Updated 09/03/21 @ 09:37 by Corby Benito MD) Alzheimer's dementia Anxiety Valle esophagus Frontotemporal dementia GERD (gastroesophageal reflux disease) Urinary incontinence Vascular dementia Vitamin D deficiency Social History Social History Advance Directives: No Advance Directives Information Provided: No Meds Allergies Allergy/AdvReac Type Severity Reaction Status Date / Time No Known Allergies Allergy Verified 09/02/21 17:53 Active Medications: Current Medications Acetaminophen (Acetaminophen Supp 650 Mg Supp.Rect) 650 mg MI Q6H PRN PRN Reason: Pain, Mild (Pain Scale 1-3) Aspirin (Aspirin 300 Mg Supp.Rect) 300 mg MI DAILY [facility] Heparin Sodium (Porcine) (Heparin Sodium,Porcine 5,000 Unit/Ml Vial) 5,000 unit SUBCUT Q12H [facility] Last Admin: 09/03/21 10:13 Dose: 5,000 unit Sodium Chloride () 1,000 mls @ 100 mls/hr IVCONT .Q10H [facility] Last Admin: 09/03/21 07:27 Dose: 125 mls/hr Piperacillin Sod/Tazobactam (Sod 2.25 gm/ Sodium Chloride) 50 mls @ 100 mls/hr IV Q8H [facility] Last Infusion: 09/03/21 10:45 Dose: Infused Vancomycin HCl 500 mg/ Sodium (Chloride) 110 mls @ 110 mls/hr IV Q24H [facility] Dextrose (D5w) 1,000 mls @ 100 mls/hr IVCONT .Q10H [facility] Ondansetron HCl (Ondansetron Hcl 4 Mg/2 Ml Vial) 4 mg IVPUSH Q8H PRN PRN Reason: Nausea and Vomiting Pharmacy Consult (Consult Rx Perform Med Rec) 1 each MISCELLANE ONCE PRN PRN Reason: Consult order Pharmacy Consult (Consult Rx Vancomycin Dosing) 1 each MISCELLANE DAILY PRN PRN Reason: Consult order Sodium Chloride (0.9 % Sodium Chloride Flush 3 Ml Syringe) 3 ml IVFLUSH QSHIFT [facility] Home Medications Medication Instructions Recorded Confirmed Last Taken Type acetaminophen 500 mg tablet 1,000 mg PO TID 09/02/21 09/02/21 09/01/21 History benztropine 0.5 mg tablet 0.5 mg PO BID 09/02/21 09/02/21 09/01/21 History cholecalciferol (vitamin D3) 1,250 1,250 mcg PO QMONTH 09/02/21 09/02/21 08/31/21 History mcg (50,000 unit) capsule gabapentin 400 mg capsule 400 mg PO TID 09/02/21 09/02/21 09/01/21 History lactulose 10 gram/15 mL oral 30 ml PO DAILY 09/02/21 09/02/21 09/01/21 History solution lorazepam 1 mg tablet 1 mg PO TID 09/02/21 09/02/21 09/01/21 History omeprazole 40 mg capsule,delayed 40 mg PO DAILY 09/02/21 09/02/21 09/01/21 History release risperidone 2 mg tablet 2 mg PO BID 09/02/21 09/02/21 09/01/21 History Physical Exam Vital Signs: Last Vital Signs Temp 97.6 F 09/03/21 04:00 Pulse 104 H 09/03/21 07:22 Resp 18 09/03/21 07:22 BP 103/63 09/03/21 07:22 Pulse Ox 95 09/03/21 07:22 O2 Del Method 09/03/21 07:22 BMI result Body Mass Index 19.9 Const General: no acute distress Neck Neck: Yes supple Resp Auscultation: diminished lung sounds Cardio Rate: regular rate GI Palpation (GI): Soft to palpation Extrem Other: No edema Results Lab Results Result Diagrams: 09/02/21 18:00 09/03/21 10:31 Lab results: Chemistry 09/02/21 09/03/21 23:15 10:31 Sodium 168 H* 169 H* Potassium 3.9 3.7 Carbon Dioxide 23 16 L BUN 127 H > 125 H Creatinine 3.15 H 2.35 H Calcium 8.6 8.1 L Hematology 09/02/21 18:00 WBC 17.1 H Hgb 16.6 Plt Count 133 L Urinalysis 09/02/21 22:35 Urine Color YELLOW Urine Appearance CLEAR Urine pH 5.5 Ur Specific Ida >= 1.030 H Urine Protein NEG Urine Glucose (UA) 100 H Urine Ketones 5 Urine Blood 3+ H Urine Nitrite NEG Ur Leukocyte Esterase NEG Urine RBC 76-150 H Urine WBC 0-2 Ur Squamous Epith Cells TRACE Assessment and Plan (1) NELLY (acute kidney injury): Status: Acute Plan Hypernatremic with significant free water deficit and NELLY NELLY due to volume contraction and tubular injury & right hydro Started on 0.45% NS and D5W; Needs Urology review Medications need to be dosed for GFR Shall closely monitor lytes and renal functions No indication for renal replacement; Shall F/U Procedures Date of Service Date of Service: 09/03/21
[2021-09-03] MEDS: Dextrose 5 % 1,000 ML 100 ML IVCONT ×2 (11:53→22:15)
[2021-09-03] MEDS: Aspirin 81 MG TAB.CHEW PO (12:40)
[2021-09-03] MEDS: bisacodyL 10 MG SUPP.RECT PR (12:40)
[2021-09-03] MEDS: Lactulose 20 GM/30 ML SOLUTION PO (12:40)
[2021-09-03 14:02] LABS: Glucose, Whole Blood 274 mg/dL (60-115)
[2021-09-03 15:26] VITALS: BP 123/94; PULSE 109; RESP 20; TEMP 37.2; O2SAT 95
[2021-09-03 15:31] LABS: Blood Urea Nitrogen 117 mg/dL (9-16); Cholesterol 166 mg/dL; HDL Cholesterol 23 mg/dL; LDL Cholesterol Calculated 96 mg/dl; Triglycerides 235 mg/dL
[2021-09-03 15:49] LABS: Anion Gap 19 (12-20); Carbon Dioxide 16 mmol/L (22-29); Chloride 132 mmol/L (96-108); Potassium 4.1 mmol/L (3.3-5.1); Sodium 163 mmol/L (135-145)
[2021-09-03 15:50] LABS: Blood Urea Nitrogen 122 mg/dL (9-16); Estimated Glomerular Filt Rate 30; Glucose Random 354 mg/dL (60-115)
[2021-09-03 16:00] VITALS: BP 117/68; PULSE 100; RESP 22; TEMP 36.8; O2SAT 95
[2021-09-03 19:45] LABS: Vancomycin Random 12.8 mcg/mL (15-20)
[2021-09-03 20:17] LABS: Anion Gap 19 (12-20); Blood Urea Nitrogen 119 mg/dL (9-16); Calcium 7.8 mg/dL (8.4-10.2); Carbon Dioxide 20 mmol/L (22-29); Chloride 128 mmol/L (96-108); Creatinine Clr Calc Pharmacy 24.9; Estimated Glomerular Filt Rate 31; Glucose Random 392 mg/dL (60-115); Potassium 3.6 mmol/L (3.3-5.1); Sodium 163 mmol/L (135-145)
--- NOTE | 2021-09-03 21:08 | PC.NURSE ---
THIS NURSE SPOKE TO HOSPITALIST SOLANGE, REGARDING IVFS ORDERED AND LAST RESULTED LABS. DOCTOR WILL CX 0.45% AND TO CONTINUE ORDER FOR d5% @ 100ML/HR.
[2021-09-03] MEDS: Atorvastatin Calcium 40 MG TABLET PO (22:16)
[2021-09-03] MEDS: vancomycin HCL 500 MG in 0.9 % Sodium Chloride 100 ML 110 MG IV (22:22)
--- NOTE | 2021-09-04 | ECG_ITS ---
Test Reason : REPEAT Blood Pressure : / mmHG Vent. Rate : 112 BPM Atrial Rate : 112 BPM P-R Int : 114 ms QRS Dur : 074 ms QT Int : 376 ms P-R-T Axes : 026 021 220 degrees QTc Int : [address] & T wave abnormality, consider inferolateral ischemia Abnormal ECG When compared with ECG of 02-SEP-2021 19:14, Premature ventricular complexes are no longer Present Premature supraventricular complexes are no longer Present ST now depressed in Inferior leads ST now depressed in Anterior leads Inverted T waves have replaced nonspecific T wave abnormality in Anterior leads Referred By: Kell Armenta Electronically Signed By:JOHANNA HERNANDEZ
[2021-09-04 00:15] LABS: Glucose, Whole Blood 284 mg/dL (60-115)
--- NOTE | 2021-09-04 00:15 | PC.NURSE ---
ntinent of a large amount of urine, pericare provided by this nurse and nurse mary. patient repositioned, POC done. Will continue to monitor pt at this time.
[2021-09-04 02:36] LABS: Anion Gap 19 (12-20); Blood Urea Nitrogen 112 mg/dL (9-16); Calcium 8.4 mg/dL (8.4-10.2); Carbon Dioxide 20 mmol/L (22-29); Chloride 127 mmol/L (96-108); Creatinine Clr Calc Pharmacy 24.4; Estimated Glomerular Filt Rate 31; Glucose Random 442 mg/dL (60-115); Potassium 3.8 mmol/L (3.3-5.1); Sodium 162 mmol/L (135-145)
[2021-09-04 04:08] VITALS: BP 132/81; PULSE 106; RESP 23; TEMP 36.6; O2SAT 97
[2021-09-04] MEDS: Piperacillin Sodium/Tazobactam 2.25 GM in 0.9 % Sodium Chloride 50 ML IV ×3 (04:16→17:54)
[2021-09-04] MEDS: Insulin Regular, Human 100 UNIT/ML 3 ML VIAL 6 UNIT IVPUSH (04:18)
[2021-09-04] MEDS: Insulin Lispro 100 UNIT/ML 3 ML VIAL 10 UNIT SUBCUT (04:18)
[2021-09-04] MEDS: Sodium Chloride 0.45 % 1,000 ML 80 ML IVCONT (04:19)
--- NOTE | 2021-09-04 04:41 | PC.NURSE ---
pt repositioned with two assist
[2021-09-04 06:00] LABS: Hematocrit 40.8 % (42.0-52.0); Hemoglobin 13.1 g/dl (14.0-18.0); Mean Corpuscular HGB Conc 32.1 g/dl (31.0-36.0); Mean Corpuscular Hemoglobin 32.3 pg (27.0-33.0); Mean Corpuscular Volume 100.7 fL (80.0-98.0); Mean Platelet Volume 13.7 fL (9.4-12.4); NRBC Pct Auto 0.3 /100WBC (0.0-0.2); PLT CLUMP 1; Red Blood Count 4.05 X10*6/uL (4.60-5.80); Red Cell Distribution Width 13.9 % (11.0-16.0)
[2021-09-04 06:01] LABS: White Blood Count 16.5 X10*3/uL (4.8-10.8)
[2021-09-04 06:08] LABS: Glucose, Whole Blood 256 mg/dL (60-115)
[2021-09-04 07:45] LABS: Glucose, Whole Blood 230 mg/dL (60-115)
[2021-09-04 08:37] LABS: Anion Gap 17 (12-20); Blood Urea Nitrogen 99 mg/dL (9-16); Calcium 8.5 mg/dL (8.4-10.2); Carbon Dioxide 17 mmol/L (22-29); Chloride 133 mmol/L (96-108); Creatinine Clr Calc Pharmacy 32.3; Estimated Glomerular Filt Rate 42; Glucose Random 251 mg/dL (60-115); Potassium 3.8 mmol/L (3.3-5.1); Sodium 163 mmol/L (135-145)
--- NOTE | 2021-09-04 08:47 | HE.PHANOTE ---
increase to 750 mg q24 predicted auc is 464 and trough 15, will leave next trough the same for 09/05
[2021-09-04] MEDS: Heparin Sodium,Porcine 5,000 UNIT/ML VIAL 5000 UNIT SUBCUT ×2 (09:21→22:04)
[2021-09-04] MEDS: Dextrose 5 % and 0.45 % NaCl 1,000 ML 150 ML IVCONT (09:21)
[2021-09-04] MEDS: 0.9 % Sodium Chloride Flush 3 ML SYRINGE IVFLUSH ×3 (09:22→22:05)
[2021-09-04 09:28] VITALS: BP 125/87; PULSE 99; RESP 18; O2SAT 94
--- NOTE | 2021-09-04 11:28 | P.PNIM_ITS ---
Subjective Subjective Date of Service: 09/04/21 Interval History: Seen and evaluated this morning Poorly responsive to physical stimuli Not focal Sodium dropped to 163 No reported overnight events Review of Systems Review of Systems: Yes Unobtainable due to mental status Physical Exam 2 Vital Signs: Vital Signs: Last Vital Signs Temp 97.8 F 09/04/21 04:08 Pulse 99 09/04/21 09:28 Resp 18 09/04/21 09:28 BP 125/87 09/04/21 09:28 Pulse Ox 94 09/04/21 09:28 O2 Del Method 09/04/21 09:28 BMI result Body Mass Index 19.9 Const: Other: Constitutional : Difficult to arouse, frail and cachectic, contracted Neck : Normal inspection, Supple Cardiovascular : RRR, no JVP, no lower extremity edema Respiratory : fair bilateral air entry, no crackles, wheezes or rhonchi Gastrointestinal: soft, lax, Normal bowel sounds, Non tender Skin : Warm, Dry Neurological : Difficult to arouse, nonverbal, contracted, not following commands, Objective Data Active Medications Acetaminophen (Acetaminophen Supp 650 Mg Supp.Rect) 650 mg CA Q6H PRN PRN Reason: Pain, Mild (Pain Scale 1-3) Aspirin (Aspirin 81 Mg Tab.Chew) 81 mg PO DAILY [facility] Last Admin: 09/04/21 09:22 Dose: 81 mg Documented By: AMADA Atorvastatin Calcium (Atorvastatin Calcium 40 Mg Tablet) 40 mg PO BEDTIME [facility] Last Admin: 09/03/21 22:16 Dose: 40 mg Documented By: NATASHA Heparin Sodium (Porcine) (Heparin Sodium,Porcine 5,000 Unit/Ml Vial) 5,000 unit SUBCUT Q12H [facility] Last Admin: 09/04/21 09:21 Dose: 5,000 unit Documented By: AMADA Piperacillin Sod/Tazobactam (Sod 2.25 gm/ Sodium Chloride) 50 mls @ 100 mls/hr IV Q8H [facility] Last Admin: 09/04/21 11:16 Dose: 100 mls/hr Documented By: AMADA Vancomycin HCl 750 mg/ Sodium (Chloride) 265 mls @ 265 mls/hr IV Q24H [facility] Dextrose/Sodium Chloride (D51/2ns) 1,000 mls @ 150 mls/hr IVCONT .Q6H40M [facility] Last Admin: 09/04/21 09:21 Dose: 150 mls/hr Documented By: AMADA Lactulose (Lactulose 20 Gm/30 Ml Solution) 20 gm PO DAILY [facility] Last Admin: 09/04/21 09:21 Dose: 20 gm Documented By: AMADA Ondansetron HCl (Ondansetron Hcl 4 Mg/2 Ml Vial) 4 mg IVPUSH Q8H PRN PRN Reason: Nausea and Vomiting Pharmacy Consult (Consult Rx Perform Med Rec) 1 each MISCELLANE ONCE PRN PRN Reason: Consult order Pharmacy Consult (Consult Rx Vancomycin Dosing) 1 each MISCELLANE DAILY PRN PRN Reason: Consult order Sodium Chloride (0.9 % Sodium Chloride Flush 3 Ml Syringe) 3 ml IVFLUSH QSMTFT [facility] Last Admin: 09/04/21 09:22 Dose: 3 ml Documented By: AMADA Labs CBC & Chem 7: 09/04/21 05:45 09/04/21 08:09 Labs: Laboratory Results - last 24 hr 09/03/21 09/03/21 09/03/21 01:45 10:31 15:17 MCV MCH MCHC RDW Plt Count MPV Absolute Nucleated RBC Nucleated RBC % (auto) Anion Gap 19 Estim Creat Clear Calc 24.0 Estimated GFR 30 POC Glucose 274 H Random Glucose 354 H* Calcium 8.0 L Triglycerides 235 Cholesterol 166 LDL Cholesterol, Calc 96 HDL Cholesterol 23 Random Vancomycin 09/03/21 09/03/21 09/03/21 19:05 19:05 23:48 MCV MCH MCHC RDW Plt Count MPV Absolute Nucleated RBC Nucleated RBC % (auto) Anion Gap 19 Estim Creat Clear Calc 24.9 Estimated GFR 31 POC Glucose 284 H Random Glucose 392 H* Calcium 7.8 L Triglycerides Cholesterol LDL Cholesterol, Calc HDL Cholesterol Random Vancomycin 12.8 L 09/04/21 09/04/21 09/04/21 02:00 05:45 06:04 MCV 100.7 H MCH 32.3 MCHC 32.1 RDW 13.9 Plt Count TNP MPV 13.7 H Absolute Nucleated RBC 0.050 H Nucleated RBC % (auto) 0.3 H Anion Gap 19 Estim Creat Clear Calc 24.4 Estimated GFR 31 POC Glucose 256 H Random Glucose 442 H* Calcium 8.4 D Triglycerides Cholesterol LDL Cholesterol, Calc HDL Cholesterol Random Vancomycin 09/04/21 09/04/21 07:40 08:09 MCV MCH MCHC RDW Plt Count MPV Absolute Nucleated RBC Nucleated RBC % (auto) Anion Gap 17 Estim Creat Clear Calc 32.3 Estimated GFR 42 POC Glucose 230 H Random Glucose 251 H D Calcium 8.5 Triglycerides Cholesterol LDL Cholesterol, Calc HDL Cholesterol Random Vancomycin Microbiology Microbiology Results: Microbiology 09/02/21 22:35 Urine Culture - Final Urine Catheterized - Straight Catheter No growth. 09/02/21 18:15 Blood Culture - Preliminary Blood - Venous No growth after 24 hours. 09/02/21 18:00 Blood Culture - Preliminary Blood - Venous No growth after 24 hours. Assessment and Plan (1) NELLY (acute kidney injury): Status: Acute (2) Hypernatremia: Status: Acute (3) SIRS (systemic inflammatory response syndrome): Status: Acute (4) Toxic metabolic encephalopathy: Status: Acute Plan This is a 71 year old male with a [facility] dementia -- multiple types, chronically contracted and non-verbal who presents to the ED with decreased oral intake and responsiveness of several days duration. He is noted to be severely dehydrated with NELLY and hypernatremia. He will be admitted for further work up. 1. NELLY 2/2 Severe dehydration 1. Hypernatremia Kidney function improving Continue IV fluid D51/2NS at 150 cc/hour Follow BMP q.6 Nephrology input appreciated Follow intake and output 2. SIRS Leukocytosis and tachycardia no definitive source, could be secondary to severe constipation On empiric zosyn / vancomcyin until final cultures CT abdomen showing significant amount of stool with evidence of stercoral colitis To use enema and laxatives 3. Toxic/Metabolic encephalopathy due to hypernatremia , medications CT head negative for any acute findings but intermediate age stroke Speech evaluated the patient, pureed diet started 4. Hyperglycemia HbA1c is 6.5 Elevated sugar from dextrose water 5. Hyperbilirubinemia benign abdominal exam trend 6. Mood Restart his home medications at the lower doses for now Presumed full code -- to obtain MOLST form from [facility] DVT pptx -- subcut. heparin The patient will need overnight hospital stay to continue treatment for NELLY and significant hypernatremia, and the possibility of sepsis with IV antibiotics/IVF/specialty consultation and to monitor response. This cannot be done in a less acute setting. Quality Stroke Does the patient have a stroke diagnosis?: No VTE Prior VTE?: No VTE Risk Level:: Medical - moderate - high VTE Device Contraindication: Treatment Not Tolerated VTE Drug Contraindication: N/A - Med Ordered
[2021-09-04 11:50] LABS: Anion Gap 18 (12-20); Blood Urea Nitrogen 98 mg/dL (9-16); Calcium 8.2 mg/dL (8.4-10.2); Carbon Dioxide 18 mmol/L (22-29); Chloride 132 mmol/L (96-108); Creatinine Clr Calc Pharmacy 38.6; Estimated Glomerular Filt Rate 52; Glucose Random 260 mg/dL (60-115); Potassium 3.5 mmol/L (3.3-5.1); Sodium 164 mmol/L (135-145)
[2021-09-04 11:54] VITALS: BP 127/58; PULSE 99; RESP 16; TEMP 37.6; O2SAT 95
--- NOTE | 2021-09-04 11:55 | PC.NURSE ---
patient sleeping. skin flush, warm, dry. resp even and non labored. nonverbal. incontinent of small amount of loose brown stool. left hip skin tear noted w/ surrounding blanchable erythema. repositioned to right side. multiple attempts to feed patient and give PO meds, patient opening mouth only a small amount, unable to sip water. hospitalist aware
[2021-09-04] MEDS: Dextrose 5 % 1,000 ML 150 ML IVCONT ×2 (15:00→22:12)
[2021-09-04 15:01] LABS: Glucose, Whole Blood 223 mg/dL (60-115)
[2021-09-04 15:31] VITALS: BP 139/81; PULSE 105; RESP 18; TEMP 37.8; O2SAT 95
--- NOTE | 2021-09-04 15:55 | PC.NURSE ---
attempted to call in RN-RN report to [facility].
--- NOTE | 2021-09-04 16:10 | PM.PNNEP ---
Subjective Subjective Date of Service: 09/04/21 Interval history: Seen and evaluated this morning Poorly responsive to physical stimuli No reported overnight events Physical Exam Vital Signs: Vital Signs: Last Vital Signs Temp 100.0 F 09/04/21 15:31 Pulse 105 H 09/04/21 15:31 Resp 18 09/04/21 15:31 BP 139/81 09/04/21 15:31 Pulse Ox 95 09/04/21 15:31 O2 Del Method 09/04/21 15:31 BMI result Body Mass Index 19.9 Const: Other: Frail Neck: Neck: Yes supple Resp: Auscultation: diminished lung sounds Cardio: Rate: regular rate GI: Palpation (GI): Soft to palpation Neuro: Other: Nonverbal Objective Data Labs CBC & Chem 7: 09/04/21 05:45 09/04/21 11:06 Labs: Laboratory Results - last 24 hr 09/03/21 09/03/21 09/03/21 19:05 19:05 23:48 WBC RBC Hgb Hct MCV MCH MCHC RDW Plt Count MPV Absolute Nucleated RBC Nucleated RBC % (auto) Sodium 163 H* Potassium 3.6 Chloride 128 H Carbon Dioxide 20 L Anion Gap 19 BUN 119 H Creatinine 2.09 H Estim Creat Clear Calc 24.9 Estimated GFR 31 POC Glucose 284 H Random Glucose 392 H* Calcium 7.8 L Random Vancomycin 12.8 L 09/04/21 09/04/21 09/04/21 02:00 05:45 06:04 WBC 16.5 H RBC 4.05 L D Hgb 13.1 L D Hct 40.8 L D MCV 100.7 H MCH 32.3 MCHC 32.1 RDW 13.9 Plt Count TNP MPV 13.7 H Absolute Nucleated RBC 0.050 H Nucleated RBC % (auto) 0.3 H Sodium 162 H* Potassium 3.8 Chloride 127 H Carbon Dioxide 20 L Anion Gap 19 BUN 112 H Creatinine 2.13 H Estim Creat Clear Calc 24.4 Estimated GFR 31 POC Glucose 256 H Random Glucose 442 H* Calcium 8.4 D Random Vancomycin 09/04/21 09/04/21 09/04/21 07:40 08:09 11:06 WBC RBC Hgb Hct MCV MCH MCHC RDW Plt Count MPV Absolute Nucleated RBC Nucleated RBC % (auto) Sodium 163 H* 164 H* Potassium 3.8 3.5 Chloride 133 H 132 H Carbon Dioxide 17 L 18 L Anion Gap 17 18 BUN 99 H 98 H Creatinine 1.61 H 1.35 Estim Creat Clear Calc 32.3 38.6 Estimated GFR 42 52 POC Glucose 230 H Random Glucose 251 H D 260 H Calcium 8.5 8.2 L Random Vancomycin 09/04/21 14:21 WBC RBC Hgb Hct MCV MCH MCHC RDW Plt Count MPV Absolute Nucleated RBC Nucleated RBC % (auto) Sodium Potassium Chloride Carbon Dioxide Anion Gap BUN Creatinine Estim Creat Clear Calc Estimated GFR POC Glucose 223 H Random Glucose Calcium Random Vancomycin Microbiology Microbiology Results: Microbiology 09/02/21 22:35 Urine Catheterized - Straight Catheter Urine Culture - Final No growth. 09/02/21 18:15 Blood - Venous Blood Culture - Preliminary No growth after 24 hours. 09/02/21 18:00 Blood - Venous Blood Culture - Preliminary No growth after 24 hours. Procedures Date of Service Date of Service: 09/04/21 Assessment & Plan Assessment and plan (1) NELLY (acute kidney injury): Status: Acute Assessment and Plan: Hypernatremic with significant free water deficit and NELLY NELLY due to volume contraction and tubular injury & right hydro Na/ renal function improved; Needs Urology review Medications need to be dosed for GFR Shall closely monitor lytes and renal functions Labs AM; Shall F/U Time Spent With Patient Time: Total time spent is greater than 50% in coordination of care (as documented) at patient's floor/unit and/or counseling patient: Progress Note: Quality Stroke Does the patient have a stroke diagnosis?: No
--- NOTE | 2021-09-04 17:32 | PC.NURSE ---
pt nonverbal, alert, vss - slight temp increase noted, 1000ml soapsuds enema slowly instilled, pt unable to retain, small amount of stool passed w water. pt cleaned and changed. pt currently NPO pending speech/swallow eval. RN-RN report given.
[2021-09-04 18:05] LABS: Anion Gap 18 (12-20); Blood Urea Nitrogen 82 mg/dL (9-16); Calcium 8.4 mg/dL (8.4-10.2); Carbon Dioxide 18 mmol/L (22-29); Chloride 131 mmol/L (96-108); Creatinine Clr Calc Pharmacy 38.3; Estimated Glomerular Filt Rate 51; Glucose Random 293 mg/dL (60-115); Potassium 3.4 mmol/L (3.3-5.1); Sodium 164 mmol/L (135-145)
[2021-09-04 20:00] VITALS: BP 126/64; PULSE 94; RESP 18; TEMP 36.5; O2SAT 98
[2021-09-04 20:32] LABS: Glucose, Whole Blood 272 mg/dL (60-115)
[2021-09-04 22:00] VITALS: BP 156/63; PULSE 97; RESP 16; TEMP 37; O2SAT 99
[2021-09-04] MEDS: LORazepam 0.5 MG TABLET PO (22:03)
[2021-09-04] MEDS: Gabapentin 100 MG CAPSULE PO (22:03)
[2021-09-04] MEDS: vancomycin HCL 750 MG in 0.9 % Sodium Chloride 250 ML 265 MG IV (22:03)
[2021-09-04] MEDS: risperiDONE 2 MG TABLET PO (22:04)
[2021-09-04] MEDS: Atorvastatin Calcium 40 MG TABLET PO (22:04)
[2021-09-04] MEDS: Benztropine Mesylate 0.5 MG TABLET PO (22:04)
[2021-09-05 00:03] LABS: Anion Gap 20 (12-20); Blood Urea Nitrogen 72 mg/dL (9-16); Calcium 8.2 mg/dL (8.4-10.2); Carbon Dioxide 17 mmol/L (22-29); Chloride 129 mmol/L (96-108); Creatinine Clr Calc Pharmacy 38.8; Estimated Glomerular Filt Rate 52; Glucose Random 317 mg/dL (60-115); Potassium 3.8 mmol/L (3.3-5.1); Sodium 162 mmol/L (135-145)
[2021-09-05] MEDS: Piperacillin Sodium/Tazobactam 2.25 GM in 0.9 % Sodium Chloride 50 ML IV ×2 (01:55→09:54)
[2021-09-05] MEDS: Omeprazole 40 MG CAPSULE.DR PO (05:50)
[2021-09-05 07:21] LABS: Hematocrit 40.8 % (42.0-52.0); Hemoglobin 12.8 g/dl (14.0-18.0); Mean Corpuscular HGB Conc 31.4 g/dl (31.0-36.0); Mean Corpuscular Hemoglobin 31.9 pg (27.0-33.0); Mean Corpuscular Volume 101.7 fL (80.0-98.0); Mean Platelet Volume 13.7 fL (9.4-12.4); NRBC Pct Auto 0.2 /100WBC (0.0-0.2); PLT CLUMP 1; Red Blood Count 4.01 X10*6/uL (4.60-5.80); Red Cell Distribution Width 13.8 % (11.0-16.0)
[2021-09-05 07:35] LABS: Anion Gap 16 (12-20); Blood Urea Nitrogen 58 mg/dL (9-16); Calcium 8.1 mg/dL (8.4-10.2); Carbon Dioxide 20 mmol/L (22-29); Chloride 127 mmol/L (96-108); Creatinine Clr Calc Pharmacy 46.9; Estimated Glomerular Filt Rate > 60; Glucose Random 371 mg/dL (60-115); Potassium 3.5 mmol/L (3.3-5.1); Sodium 159 mmol/L (135-145)
[2021-09-05 07:37] LABS: Glucose, Whole Blood 334 mg/dL (60-115)
[2021-09-05 08:00] VITALS: BP 159/68; PULSE 95; RESP 20; TEMP 36.8; O2SAT 98
[2021-09-05 08:08] LABS: Platelet Count 78 X10*3/uL (160-400); White Blood Count 12.3 X10*3/uL (4.8-10.8)
[2021-09-05] MEDS: Gabapentin 100 MG CAPSULE PO ×2 (09:50→21:33)
[2021-09-05] MEDS: Aspirin 81 MG TAB.CHEW PO (09:50)
[2021-09-05] MEDS: Benztropine Mesylate 0.5 MG TABLET PO ×2 (09:50→21:33)
[2021-09-05] MEDS: LORazepam 0.5 MG TABLET PO ×2 (09:50→21:33)
[2021-09-05] MEDS: risperiDONE 2 MG TABLET PO ×2 (09:50→21:33)
[2021-09-05] MEDS: Lactulose 20 GM/30 ML SOLUTION PO (09:51)
[2021-09-05] MEDS: 0.9 % Sodium Chloride Flush 3 ML SYRINGE IVFLUSH ×2 (09:53→17:23)
[2021-09-05] MEDS: Dextrose 5 % 1,000 ML 150 ML IVCONT ×2 (10:50→17:25)
[2021-09-05] MEDS: bisacodyL 10 MG SUPP.RECT PR (10:50)
[2021-09-05 11:33] LABS: Anion Gap 17 (12-20); Blood Urea Nitrogen 53 mg/dL (9-16); Calcium 8.2 mg/dL (8.4-10.2); Carbon Dioxide 20 mmol/L (22-29); Chloride 126 mmol/L (96-108); Estimated Glomerular Filt Rate > 60; Glucose Random 332 mg/dL (60-115); Potassium 3.3 mmol/L (3.3-5.1); Sodium 159 mmol/L (135-145)
[2021-09-05 11:42] VITALS: BP 127/64; PULSE 83; RESP 20; TEMP 36.4; O2SAT 99
--- NOTE | 2021-09-05 12:14 | P.PNIM_ITS ---
Subjective Subjective Date of Service: 09/05/21 Interval History: Seen and evaluated this morning Poorly responsive to physical stimuli Not focal Sodium dropped to 159 No reported overnight events Review of Systems Review of Systems: Yes Unobtainable due to mental status Physical Exam 2 Vital Signs: Vital Signs: Last Vital Signs Temp 97.5 F 09/05/21 11:42 Pulse 83 09/05/21 11:42 Resp 20 09/05/21 11:42 BP 127/64 09/05/21 11:42 Pulse Ox 99 09/05/21 11:42 O2 Del Method 09/05/21 11:42 BMI result Body Mass Index 19.9 Const: Other: Constitutional : Difficult to arouse, frail and cachectic, contracted Neck : Normal inspection, Supple Cardiovascular : RRR, no JVP, no lower extremity edema Respiratory : fair bilateral air entry, no crackles, wheezes or rhonchi Gastrointestinal: soft, lax, Normal bowel sounds, Non tender Skin : Warm, Dry Neurological : Difficult to arouse, nonverbal, contracted, not following commands, Objective Data Active Medications Acetaminophen (Acetaminophen Supp 650 Mg Supp.Rect) 650 mg [place] Q6H PRN PRN Reason: Pain, Mild (Pain Scale 1-3) Aspirin (Aspirin 81 Mg Tab.Chew) 81 mg PO DAILY [facility] Last Admin: 09/05/21 09:50 Dose: 81 mg Documented By: KEL Atorvastatin Calcium (Atorvastatin Calcium 40 Mg Tablet) 40 mg PO BEDTIME [facility] Last Admin: 09/04/21 22:04 Dose: 40 mg Documented By: PINKY Benztropine Mesylate (Benztropine Mesylate 0.5 Mg Tablet) 0.5 mg PO BID [facility] Last Admin: 09/05/21 09:50 Dose: 0.5 mg Documented By: KEL Gabapentin (Gabapentin 100 Mg Capsule) 100 mg PO BID [facility] Last Admin: 09/05/21 09:50 Dose: 100 mg Documented By: KEL Piperacillin Sod/Tazobactam (Sod 2.25 gm/ Sodium Chloride) 50 mls @ 100 mls/hr IV Q8H [facility] Last Infusion: 09/05/21 10:50 Dose: 0 mls/hr Documented By: KEL Vancomycin HCl 750 mg/ Sodium (Chloride) 265 mls @ 265 mls/hr IV Q24H [facility] Last Infusion: 09/04/21 23:22 Dose: 0 mls/hr Documented By: PINKY Dextrose (D5w) 1,000 mls @ 150 mls/hr IVCONT .Q6H40M [facility] Last Admin: 09/05/21 10:50 Dose: 150 mls/hr Documented By: KEL Lactulose (Lactulose 20 Gm/30 Ml Solution) 20 gm PO DAILY [facility] Last Admin: 09/05/21 09:51 Dose: 20 gm Documented By: KEL Lorazepam (Lorazepam 0.5 Mg Tablet) 0.5 mg PO BID [facility] Last Admin: 09/05/21 09:50 Dose: 0.5 mg Documented By: KEL Omeprazole (Omeprazole 40 Mg Capsule.Dr) 40 mg PO DAILY@0630 [facility] Last Admin: 09/05/21 05:50 Dose: 40 mg Documented By: VICTORIANO Ondansetron HCl (Ondansetron Hcl 4 Mg/2 Ml Vial) 4 mg IVPUSH Q8H PRN PRN Reason: Nausea and Vomiting Pharmacy Consult (Consult Rx Perform Med Rec) 1 each MISCELLANE ONCE PRN PRN Reason: Consult order Pharmacy Consult (Consult Rx Vancomycin Dosing) 1 each MISCELLANE DAILY PRN PRN Reason: Consult order Risperidone (Risperidone 2 Mg Tablet) 2 mg PO BID [facility] Last Admin: 09/05/21 09:50 Dose: 2 mg Documented By: KEL Sodium Chloride (0.9 % Sodium Chloride Flush 3 Ml Syringe) 3 ml IVFLUSH QSHIFT [facility] Last Admin: 09/05/21 09:53 Dose: 3 ml Documented By: KEL Labs CBC & Chem 7: 09/05/21 06:29 09/05/21 10:42 Labs: Laboratory Results - last 24 hr 09/04/21 09/04/21 09/04/21 14:21 16:57 20:28 MCV MCH MCHC RDW Plt Count MPV Absolute Nucleated RBC Nucleated RBC % (auto) Anion Gap 18 Estim Creat Clear Calc 38.3 Estimated GFR 51 POC Glucose 223 H 272 H Random Glucose 293 H Calcium 8.4 09/04/21 09/05/21 09/05/21 23:32 06:29 06:29 MCV 101.7 H MCH 31.9 MCHC 31.4 RDW 13.8 Plt Count 78 L D MPV 13.7 H Absolute Nucleated RBC 0.020 H Nucleated RBC % (auto) 0.2 Anion Gap 20 16 Estim Creat Clear Calc 38.8 46.9 Estimated GFR 52 > 60 POC Glucose Random Glucose 317 H 371 H* Calcium 8.2 L 8.1 L 09/05/21 09/05/21 07:29 10:42 MCV MCH MCHC RDW Plt Count MPV Absolute Nucleated RBC Nucleated RBC % (auto) Anion Gap 17 Estim Creat Clear Calc 51.0 Estimated GFR > 60 POC Glucose 334 H Random Glucose 332 H Calcium 8.2 L Microbiology Microbiology Results: Microbiology 09/02/21 18:15 Blood Culture - Preliminary Blood - Venous No growth after 48 hours. 09/02/21 18:00 Blood Culture - Preliminary Blood - Venous No growth after 48 hours. 09/02/21 22:35 Urine Culture - Final Urine Catheterized - Straight Catheter No growth. Assessment and Plan (1) Toxic metabolic encephalopathy: Status: Acute (2) SIRS (systemic inflammatory response syndrome): Status: Acute (3) Hypernatremia: Status: Acute (4) NELLY (acute kidney injury): Status: Acute (5) Constipation: Status: Acute Plan This is a 71 year old male with a [facility] dementia -- multiple types, chronically c ontracted and non-verbal who presents to the ED with decreased oral intake and responsiveness of several days duration. He is noted to be severely dehydrated with NELLY and hypernatremia. He will be admitted for further work up. 1. NELLY 2/2 Severe dehydration 1. Hypernatremia Kidney function improving Continue IV fluid D5 at 150 cc/hour Follow BMP q.6 Nephrology input appreciated Follow intake and output 2. SIRS Leukocytosis and tachycardia no definitive source, could be secondary to severe constipation and dehydration Discontinue zosyn / vancomcyin as cultures negative CT abdomen showing significant amount of stool with evidence of stercoral colitis Had bowel movement Continue laxatives Monitor for any fever 3. Toxic/Metabolic encephalopathy due to hypernatremia , medications CT head negative for any acute findings but intermediate age stroke Speech evaluated the patient, pureed diet started 4. Hyperglycemia HbA1c is 6.5 Elevated sugar from dextrose water 5. Hyperbilirubinemia benign abdominal exam To trend 6. Mood Restart his home medications at the lower doses for now Presumed full code pending MOLST form from [facility] DVT pptx -- SCDs for thrombocytopenia The patient will need overnight hospital stay to continue treatment for NELLY and significant hypernatremia, and the possibility of sepsis with IV antibiotics/IVF/specialty consultation and to monitor response. This cannot be done in a less acute setting. Quality Stroke Does the patient have a stroke diagnosis?: No VTE Prior VTE?: No VTE Risk Level:: Medical - moderate - high VTE Device Contraindication: Treatment Not Tolerated VTE Drug Contraindication: N/A - Med Ordered
[2021-09-05 12:50] LABS: Alanine Aminotransferase 25 U/L (0-40); Albumin Level 2.9 g/dL (3.5-5.0); Alkaline Phosphatase 67 U/L (39-117); Aspartate Amino Transferase 48 U/L (5-37); Bilirubin Direct 0.6 mg/dL (0.0-0.5); Bilirubin Total 1.4 mg/dL (0.0-1.0); Total Protein 5.8 g/dL (6.5-8.0)
[2021-09-05 15:00] VITALS: BP 107/64; PULSE 90; RESP 18; TEMP 36.7; O2SAT 97
--- NOTE | 2021-09-05 15:02 | PM.PNNEP ---
Subjective Subjective Date of Service: 09/05/21 Interval history: No reported overnight events Physical Exam Vital Signs: Vital Signs: Last Vital Signs Temp 98.1 F 09/05/21 15:00 Pulse 90 09/05/21 15:00 Resp 18 09/05/21 15:00 BP 107/64 09/05/21 15:00 Pulse Ox 97 09/05/21 15:00 O2 Del Method 09/05/21 15:00 BMI result Body Mass Index 19.9 Const: Other: cachectic, contracted Neck: Neck: Yes supple Resp: Auscultation: diminished lung sounds Cardio: Rate: regular rate GI: Palpation (GI): Soft to palpation Neuro: Other: Nonverbal Objective Data Labs CBC & Chem 7: 09/05/21 06:29 09/05/21 10:42 Labs: Laboratory Results - last 24 hr 09/04/21 09/04/21 09/04/21 16:57 20:28 23:32 WBC RBC Hgb Hct MCV MCH MCHC RDW Plt Count MPV Absolute Nucleated RBC Nucleated RBC % (auto) Sodium 164 H* 162 H* Potassium 3.4 3.8 Chloride 131 H 129 H Carbon Dioxide 18 L 17 L Anion Gap 18 20 BUN 82 H 72 H Creatinine 1.36 1.34 Estim Creat Clear Calc 38.3 38.8 Estimated GFR 51 52 POC Glucose 272 H Random Glucose 293 H 317 H Calcium 8.4 8.2 L Total Bilirubin Direct Bilirubin AST ALT Alkaline Phosphatase Total Protein Albumin 09/05/21 09/05/21 09/05/21 06:29 06:29 07:29 WBC 12.3 H RBC 4.01 L Hgb 12.8 L Hct 40.8 L MCV 101.7 H MCH 31.9 MCHC 31.4 RDW 13.8 Plt Count 78 L D MPV 13.7 H Absolute Nucleated RBC 0.020 H Nucleated RBC % (auto) 0.2 Sodium 159 H Potassium 3.5 Chloride 127 H Carbon Dioxide 20 L Anion Gap 16 BUN 58 H Creatinine 1.11 Estim Creat Clear Calc 46.9 Estimated GFR > 60 POC Glucose 334 H Random Glucose 371 H* Calcium 8.1 L Total Bilirubin Direct Bilirubin AST ALT Alkaline Phosphatase Total Protein Albumin 09/05/21 10:42 WBC RBC Hgb Hct MCV MCH MCHC RDW Plt Count MPV Absolute Nucleated RBC Nucleated RBC % (auto) Sodium 159 H Potassium 3.3 Chloride 126 H Carbon Dioxide 20 L Anion Gap 17 BUN 53 H Creatinine 1.02 Estim Creat Clear Calc 51.0 Estimated GFR > 60 POC Glucose Random Glucose 332 H Calcium 8.2 L Total Bilirubin 1.4 H Direct Bilirubin 0.6 H AST 48 H D ALT 25 Alkaline Phosphatase 67 Total Protein 5.8 L Albumin 2.9 L Microbiology Microbiology Results: Microbiology 09/02/21 18:15 Blood - Venous Blood Culture - Preliminary No growth after 48 hours. 09/02/21 18:00 Blood - Venous Blood Culture - Preliminary No growth after 48 hours. 09/02/21 22:35 Urine Catheterized - Straight Catheter Urine Culture - Final No growth. Procedures Date of Service Date of Service: 09/05/21 Assessment & Plan Assessment and plan (1) NELLY (acute kidney injury): Status: Acute Assessment and Plan: Hypernatremic with significant free water deficit and NELLY NELLY due to volume contraction and tubular injury & right hydro Na/ renal function improved; Needs Urology review Medications need to be dosed for GFR Shall closely monitor lytes and renal functions Time Spent With Patient Time: Total time spent is greater than 50% in coordination of care (as documented) at patient's floor/unit and/or counseling patient: Progress Note: Quality Stroke Does the patient have a stroke diagnosis?: No
--- NOTE | 2021-09-05 16:04 | MHC.CM.PN ---
PT IS A LTC RESIDENT OF [facility] CALLED PTS GUARDIAN, DEAN PIZARRO [phone], SHE IS AWARE OF PTS ADMISSION CONTACT INFORMATION PROVIDED ALONG WITH INVITATION TO CALL WITH QUESTIONS/CONCERNS DEAN ASKS THAT SHE RECEIVE A CALL FROM PTS HOSPITALIST WITH AN UPDATE ON MONDAY PCP: SHIREEN HARRY DCP: RETURN TO [facility]
[2021-09-05 16:12] LABS: Glucose, Whole Blood 301 mg/dL (60-115)
[2021-09-05 19:18] LABS: Anion Gap 12 (12-20); Blood Urea Nitrogen 44 mg/dL (9-16); Calcium 7.9 mg/dL (8.4-10.2); Carbon Dioxide 22 mmol/L (22-29); Chloride 123 mmol/L (96-108); Creatinine Clr Calc Pharmacy 54.8; Estimated Glomerular Filt Rate > 60; Glucose Random 337 mg/dL (60-115); Potassium 3.4 mmol/L (3.3-5.1); Sodium 154 mmol/L (135-145)
[2021-09-05 19:26] LABS: Vancomycin Random 8.7 mcg/mL (15-20)
[2021-09-05 20:00] VITALS: BP 148/69; PULSE 97; RESP 18; TEMP 37.3; O2SAT 97
[2021-09-05 21:14] LABS: Glucose, Whole Blood 275 mg/dL (60-115)
[2021-09-05] MEDS: Atorvastatin Calcium 40 MG TABLET PO (21:33)
[2021-09-05 23:29] VITALS: BP 108/53; PULSE 89; RESP 15; TEMP 36.7; O2SAT 98
[2021-09-06 01:10] LABS: Anion Gap 14 (12-20); Blood Urea Nitrogen 40 mg/dL (9-16); Carbon Dioxide 21 mmol/L (22-29); Chloride 122 mmol/L (96-108); Creatinine Clr Calc Pharmacy 61.3; Estimated Glomerular Filt Rate > 60; Glucose Random 322 mg/dL (60-115); Potassium 3.7 mmol/L (3.3-5.1); Sodium 153 mmol/L (135-145)
[2021-09-06 02:02] LABS: Glucose, Whole Blood 288 mg/dL (60-115)
[2021-09-06] MEDS: Dextrose 5 % 1,000 ML 150 ML IVCONT ×2 (02:47→13:59)
[2021-09-06 03:37] VITALS: BP 126/69; PULSE 90; RESP 17; TEMP 37.8; O2SAT 98
[2021-09-06] MEDS: Acetaminophen Supp 650 MG SUPP.RECT PR (04:02)
[2021-09-06 07:13] LABS: Anion Gap 14 (12-20); Blood Urea Nitrogen 36 mg/dL (9-16); Calcium 7.7 mg/dL (8.4-10.2); Carbon Dioxide 22 mmol/L (22-29); Chloride 120 mmol/L (96-108); Creatinine Clr Calc Pharmacy 63.5; Estimated Glomerular Filt Rate > 60; Glucose Random 330 mg/dL (60-115); Potassium 3.7 mmol/L (3.3-5.1); Sodium 152 mmol/L (135-145)
[2021-09-06 08:00] VITALS: BP 123/82; PULSE 85; RESP 16; TEMP 36.2; O2SAT 99
[2021-09-06 08:31] LABS: Glucose, Whole Blood 283 mg/dL (60-115)
[2021-09-06] MEDS: LORazepam 0.5 MG TABLET PO ×2 (10:05→21:28)
[2021-09-06] MEDS: risperiDONE 2 MG TABLET PO ×2 (10:05→21:28)
[2021-09-06] MEDS: 0.9 % Sodium Chloride Flush 3 ML SYRINGE IVFLUSH (10:05)
[2021-09-06] MEDS: Benztropine Mesylate 0.5 MG TABLET PO ×2 (10:05→21:28)
[2021-09-06] MEDS: Aspirin 81 MG TAB.CHEW PO (10:05)
[2021-09-06] MEDS: Gabapentin 100 MG CAPSULE PO ×2 (10:05→21:28)
--- NOTE | 2021-09-06 11:02 | PM.NEUROCN ---
History of Present Illness Data of Consult Service Date: 09/06/21 Primary Care Provider: Carolyn Sanz MD HPI Reason for consult: Stroke 71 years old man with severe multifactorial, mostly at Alzheimer type, dementia who had a CT scan of brain done revealing a stroke and this consultation was requested. He was nonverbal and not able to provide any history. He was being treated for infection or sepsis. Review of Systems Review of Systems: Could not be done with him PMFSH Past Medical History Medical History (Updated 09/06/21 @ 11:04 by Jelani Hansen MD) Alzheimer's dementia Anxiety Valle esophagus Frontotemporal dementia GERD (gastroesophageal reflux disease) Urinary incontinence Vascular dementia Vitamin D deficiency Social History Social History Household Members: Unknown / Unable to assess Housing: Longterm Do you presently have visiting nurse or other home services: No (pt is from [facility]) Unable to assess alcohol history related to: Unknown Patient Tobacco Use Status: Tobacco use Unknown Currently Displaying Signs/Symptoms of Drug Intoxication Withdrawal: No Advance Directives: No Advance Directives Information Provided: No Recently lost weight without trying: Unsure How much weight loss: Unsure Nutrition Risks: On aspiration precautions Poor oral hygiene: Yes service: No Current occupational status: disabled Meds Allergies Allergy/AdvReac Type Severity Reaction Status Date / Time No Known Allergies Allergy Verified 09/02/21 17:53 Active Medications: Current Medications Acetaminophen (Acetaminophen Supp 650 Mg Supp.Rect) 650 mg [place] Q6H PRN PRN Reason: Pain, Mild (Pain Scale 1-3) Last Admin: 09/06/21 04:02 Dose: 650 mg Aspirin (Aspirin 81 Mg Tab.Chew) 81 mg PO DAILY [facility] Last Admin: 09/06/21 10:05 Dose: 81 mg Atorvastatin Calcium (Atorvastatin Calcium 40 Mg Tablet) 40 mg PO BEDTIME [facility] Last Admin: 09/05/21 21:33 Dose: 40 mg Benztropine Mesylate (Benztropine Mesylate 0.5 Mg Tablet) 0.5 mg PO BID [facility] Last Admin: 09/06/21 10:05 Dose: 0.5 mg Gabapentin (Gabapentin 100 Mg Capsule) 100 mg PO BID [facility] Last Admin: 09/06/21 10:05 Dose: 100 mg Dextrose (D5w) 1,000 mls @ 150 mls/hr IVCONT .Q6H40M [facility] Last Infusion: 09/06/21 10:06 Dose: Infused Lactulose (Lactulose 20 Gm/30 Ml Solution) 20 gm PO DAILY [facility] Last Admin: 09/06/21 10:27 Dose: Not Given Lorazepam (Lorazepam 0.5 Mg Tablet) 0.5 mg PO BID [facility] Last Admin: 09/06/21 10:05 Dose: 0.5 mg Omeprazole (Omeprazole 40 Mg Capsule.Dr) 40 mg PO DAILY@0630 [facility] Last Admin: 09/06/21 05:36 Dose: Not Given Ondansetron HCl (Ondansetron Hcl 4 Mg/2 Ml Vial) 4 mg IVPUSH Q8H PRN PRN Reason: Nausea and Vomiting Pharmacy Consult (Consult Rx Perform Med Rec) 1 each MISCELLANE ONCE PRN PRN Reason: Consult order Pharmacy Consult (Consult Rx Vancomycin Dosing) 1 each MISCELLANE DAILY PRN PRN Reason: Consult order Risperidone (Risperidone 2 Mg Tablet) 2 mg PO BID [facility] Last Admin: 09/06/21 10:05 Dose: 2 mg Sodium Chloride (0.9 % Sodium Chloride Flush 3 Ml Syringe) 3 ml IVFLUSH QSHIFT [facility] Last Admin: 09/06/21 10:05 Dose: 3 ml Home Medications Medication Instructions Recorded Confirmed Last Taken Type acetaminophen 500 mg tablet 1,000 mg PO TID 09/02/21 09/02/21 09/01/21 History benztropine 0.5 mg tablet 0.5 mg PO BID 09/02/21 09/02/21 09/01/21 History cholecalciferol (vitamin D3) 1,250 1,250 mcg PO QMONTH 09/02/21 09/02/21 08/31/21 History mcg (50,000 unit) capsule gabapentin 400 mg capsule 400 mg PO TID 09/02/21 09/02/21 09/01/21 History lactulose 10 gram/15 mL oral 30 ml PO DAILY 09/02/21 09/02/21 09/01/21 History solution lorazepam 1 mg tablet 1 mg PO TID 09/02/21 09/02/21 09/01/21 History omeprazole 40 mg capsule,delayed 40 mg PO DAILY 09/02/21 09/02/21 09/01/21 History release risperidone 2 mg tablet 2 mg PO BID 09/02/21 09/02/21 09/01/21 History Physical Exam Vital Signs: Vital Signs: Last Vital Signs Temp 97.2 F 09/06/21 08:00 Pulse 85 09/06/21 08:00 Resp 16 09/06/21 08:00 BP 123/82 09/06/21 08:00 Pulse Ox 99 09/06/21 08:00 O2 Del Method 09/06/21 08:00 BMI result Body Mass Index 19.9 Neuro: Other: Very drowsy not able to communicate. Arms and legs are flexed and fixed. Face is symmetrical. There is no obvious eye deviation or jerking. Pupils are round reactive. Results Labs CBC & Chem 7: 09/05/21 06:29 09/06/21 06:04 Labs: BMP 09/05/21 09/05/21 09/05/21 10:42 18:49 23:29 Sodium 159 H 154 H 153 H Potassium 3.3 3.4 3.7 Chloride 126 H 123 H 122 H Carbon Dioxide 20 L 22 21 L BUN 53 H 44 H 40 H Creatinine 1.02 0.95 0.85 Calcium 8.2 L 7.9 L 8.0 L 09/06/21 06:04 Sodium 152 H Potassium 3.7 Chloride 120 H Carbon Dioxide 22 BUN 36 H Creatinine 0.82 Calcium 7.7 L Liver Function 09/05/21 Range/Units 10:42 Total Bilirubin 1.4 H (0.0-1.0) mg/dL Direct Bilirubin 0.6 H (0.0-0.5) mg/dL AST 48 H D (5-37) U/L ALT 25 (0-40) U/L Alkaline Phosphatase 67 (39-117) U/L Albumin 2.9 L (3.5-5.0) g/dL Head CT reveals severe diffuse cerebral and cerebellar central and cortical atrophy, a chronic left thalamic lacunar type infarct and microvascular disease Microbiology Microbiology Results: Microbiology 09/02/21 18:15 Blood - Venous Blood Culture - Preliminary No growth after 48 hours. 09/02/21 18:00 Blood - Venous Blood Culture - Preliminary No growth after 48 hours. 09/02/21 22:35 Urine Catheterized - Straight Catheter Urine Culture - Final No growth. Assessment and Plan (1) Severe dementia: Status: Acute (2) Presenile Alzheimer dementia: Status: Acute (3) Cerebral microvascular disease: Status: Acute (4) Chronic cerebral venous infarction: Status: Acute 71 years old man with severe multifactorial predominantly at Alzheimer type dementia resulting in unable to communicate and bedridden status. His imaging revealed a chronic small left thalamic ischemic infarction, which was not his main issue. With this amount of dementia and disability, I recommend only comfort measures. (5) Multifactorial dementia: Status: Acute Procedures Date of Service Date of Service: 09/06/21
[2021-09-06 11:37] VITALS: BP 138/68; PULSE 108; RESP 20; TEMP 36.6; O2SAT 98
--- NOTE | 2021-09-06 11:57 | MHC.CM.PN ---
PER MD ROUNDS, PT NOT YET CLEARED TO DC DC PLAN REMAINS, RETURN TO [facility]IA BLS GUARDIAN: DEAN PIZARRO [phone]
--- NOTE | 2021-09-06 12:39 | HO.PM.IMPN ---
Subjective Subjective Date of Service: 09/06/21 Interval History: Seen and evaluated this morning Poorly responsive to physical stimuli Not focal Sodium dropped to 159 No reported overnight events Physical Exam Vital Signs: Vital Signs: Last Vital Signs Temp 98 F 09/06/21 11:37 Pulse 108 H 09/06/21 11:37 Resp 20 09/06/21 11:37 BP 138/68 09/06/21 11:37 Pulse Ox 98 09/06/21 11:37 O2 Del Method 09/06/21 11:37 BMI result Body Mass Index 19.9 Const: Other: Constitutional : Difficult to arouse, frail and cachectic, contracted Neck : Normal inspection, Supple Cardiovascular : RRR, no JVP, no lower extremity edema Respiratory : fair bilateral air entry, no crackles, wheezes or rhonchi Gastrointestinal: soft, lax, Normal bowel sounds, Non tender Skin : Warm, Dry Neurological : Difficult to arouse, nonverbal, contracted, not following commands, Objective Data Active Medications Acetaminophen (Acetaminophen Supp 650 Mg Supp.Rect) 650 mg [place] Q6H PRN PRN Reason: Pain, Mild (Pain Scale 1-3) Last Admin: 09/06/21 04:02 Dose: 650 mg Documented By: RADHA Aspirin (Aspirin 81 Mg Tab.Chew) 81 mg PO DAILY [facility] Last Admin: 09/06/21 10:05 Dose: 81 mg Documented By: KEL Atorvastatin Calcium (Atorvastatin Calcium 40 Mg Tablet) 40 mg PO BEDTIME [facility] Last Admin: 09/05/21 21:33 Dose: 40 mg Documented By: RADHA Benztropine Mesylate (Benztropine Mesylate 0.5 Mg Tablet) 0.5 mg PO BID [facility] Last Admin: 09/06/21 10:05 Dose: 0.5 mg Documented By: KEL Gabapentin (Gabapentin 100 Mg Capsule) 100 mg PO BID [facility] Last Admin: 09/06/21 10:05 Dose: 100 mg Documented By: KEL Dextrose (D5w) 1,000 mls @ 150 mls/hr IVCONT .Q6H40M [facility] Last Infusion: 09/06/21 10:06 Dose: 0 mls/hr Documented By: KEL Lactulose (Lactulose 20 Gm/30 Ml Solution) 20 gm PO DAILY [facility] Last Admin: 09/06/21 10:27 Dose: Not Given Documented By: KEL Non-Admin Reason: Patient Condition Contraindication Lorazepam (Lorazepam 0.5 Mg Tablet) 0.5 mg PO BID [facility] Last Admin: 09/06/21 10:05 Dose: 0.5 mg Documented By: KEL Omeprazole (Omeprazole 40 Mg Capsule.Dr) 40 mg PO DAILY@0630 [facility] Last Admin: 09/06/21 05:36 Dose: Not Given Documented By: RADHA Non-Admin Reason: unable to crush Ondansetron HCl (Ondansetron Hcl 4 Mg/2 Ml Vial) 4 mg IVPUSH Q8H PRN PRN Reason: Nausea and Vomiting Pharmacy Consult (Consult Rx Perform Med Rec) 1 each MISCELLANE ONCE PRN PRN Reason: Consult order Pharmacy Consult (Consult Rx Vancomycin Dosing) 1 each MISCELLANE DAILY PRN PRN Reason: Consult order Risperidone (Risperidone 2 Mg Tablet) 2 mg PO BID [facility] Last Admin: 09/06/21 10:05 Dose: 2 mg Documented By: KEL Sodium Chloride (0.9 % Sodium Chloride Flush 3 Ml Syringe) 3 ml IVFLUSH QSHIFT [facility] Last Admin: 09/06/21 10:05 Dose: 3 ml Documented By: KEL Labs CBC & Chem 7: 09/05/21 06:29 09/06/21 06:04 Labs: Laboratory Results - last 24 hr 09/05/21 09/05/21 09/05/21 10:42 16:07 18:49 Anion Gap 12 Estim Creat Clear Calc 54.8 Estimated GFR > 60 POC Glucose 301 H Random Glucose 337 H Calcium 7.9 L Total Bilirubin 1.4 H Direct Bilirubin 0.6 H AST 48 H D ALT 25 Alkaline Phosphatase 67 Total Protein 5.8 L Albumin 2.9 L Random Vancomycin 09/05/21 09/05/21 09/05/21 18:49 21:10 23:29 Anion Gap 14 Estim Creat Clear Calc 61.3 Estimated GFR > 60 POC Glucose 275 H Random Glucose 322 H Calcium 8.0 L Total Bilirubin Direct Bilirubin AST ALT Alkaline Phosphatase Total Protein Albumin Random Vancomycin 8.7 L 09/06/21 09/06/21 09/06/21 01:58 06:04 08:28 Anion Gap 14 Estim Creat Clear Calc 63.5 Estimated GFR > 60 POC Glucose 288 H 283 H Random Glucose 330 H Calcium 7.7 L Total Bilirubin Direct Bilirubin AST ALT Alkaline Phosphatase Total Protein Albumin Random Vancomycin Assessment and Plan (1) Multifactorial dementia: Status: Acute (2) Chronic cerebral venous infarction: Status: Acute (3) Cerebral microvascular disease: Status: Acute (4) Presenile Alzheimer dementia: Status: Acute (5) Severe dementia: Status: Acute (6) Constipation: Status: Acute (7) Hypernatremia: Status: Acute (8) NELLY (acute kidney injury): Status: Acute Plan This is a 71 year old male with a [facility] dementia -- multiple types, chronically contracted and non-verbal who presents to the ED with decreased oral intake and responsiveness of several days duration. He is noted to be severely dehydrated with NELLY and hypernatremia. He will be admitted for further work up. 1. NELLY 2/2 Severe dehydration 1. Hypernatremia Kidney function improving sodium level trending down to 152 Continue IV fluid D5 at 150 cc/hour Follow BMP q.8 Nephrology input appreciated Follow intake and output 2. SIRS Leukocytosis and tachycardia no definitive source, could be secondary to severe constipation and dehydration CT abdomen showing significant amount of stool with evidence of stercoral colitis Discontinue zosyn / vancomcyin as cultures negative Had bowel movement Continue laxatives Monitor for any fever 3. Toxic/Metabolic encephalopathy due to hypernatremia , medications CT head negative for any acute findings but intermediate age stroke Speech evaluated the patient, pureed diet started Neurology input appreciated, consider comfort measures 4. Hyperglycemia HbA1c is 6.5 Elevated sugar from dextrose water 5. Hyperbilirubinemia benign abdominal exam To trend 6. Mood Restart his home medications at the lower doses for now Presumed full code pending [facility] form from [facility] DVT pptx -- SCDs for thrombocytopenia The patient will need overnight hospital stay to continue treatment for NELLY and significant hypernatremia, and the possibility of sepsis with IV antibiotics/IVF/specialty consultation and to monitor response. This cannot be done in a less acute setting. Quality Stroke Does the patient have a stroke diagnosis?: No VTE Prior VTE?: No VTE Risk Level:: Medical - moderate - high VTE Device Contraindication: Treatment Not Tolerated VTE Drug Contraindication: N/A - Med Ordered
[2021-09-06 14:17] VITALS: BMI 19.9
--- NOTE | 2021-09-06 14:20 | MHC.CLN ---
PT IS MODERATELY MALNOURISHED PT WITH MILDLY DEPLETED SUBCUTANEOUS FAT AND MUSCLE MASS DIET RX: PUREED -APPROPRIATE RECOMMEND ADDING ENSURE TID TO INCREASE KCALS AND PROMOTE WOUND HEALING SUPP TO PROVIDE 1050KCALS, 60G PROTEIN MONITOR PO INTAKE CLOSELY SEE ALSO FULL CLINICAL NUTRITION ASSESSMENT
[2021-09-06 15:05] LABS: Anion Gap 14 (12-20); Blood Urea Nitrogen 30 mg/dL (9-16); Carbon Dioxide 22 mmol/L (22-29); Chloride 118 mmol/L (96-108); Creatinine Clr Calc Pharmacy 69.4; Estimated Glomerular Filt Rate > 60; Glucose Random 250 mg/dL (60-115); Potassium 3.3 mmol/L (3.3-5.1); Sodium 151 mmol/L (135-145)
[2021-09-06 15:28] VITALS: BP 125/85; PULSE 121; RESP 16; TEMP 37.3; O2SAT 98
[2021-09-06 15:47] LABS: Glucose, Whole Blood 255 mg/dL (60-115)
--- NOTE | 2021-09-06 15:59 | MHC.SLORD ---
Speech Language Pathology Order Status: Attempted to see Pt mid-day today. Pt was not adequately alert/awake for P.O. trials, despite repositioning, encouragement. Will continue to follow.
--- NOTE | 2021-09-06 18:32 | PM.PNNEP ---
Subjective Subjective Date of Service: 09/06/21 Interval history: Seen and examined, evetns noted Physical Exam Vital Signs: Vital Signs: Last Vital Signs Temp 99.1 F 09/06/21 15:28 Pulse 121 H 09/06/21 15:28 Resp 16 09/06/21 15:28 BP 125/85 09/06/21 15:28 Pulse Ox 98 09/06/21 15:28 O2 Del Method 09/06/21 15:28 BMI result Body Mass Index 19.9 Const: Other: cachectic, contracted General: no acute distress Neck: Neck: Yes supple Resp: Auscultation: diminished lung sounds Cardio: Rate: regular rate GI: Palpation (GI): Soft to palpation Neuro: Other: Nonverbal Extrem: Other: No edema Objective Data Labs CBC & Chem 7: 09/05/21 06:29 09/06/21 14:29 Labs: Laboratory Results - last 24 hr 09/05/21 09/05/21 09/05/21 18:49 18:49 21:10 Sodium 154 H Potassium 3.4 Chloride 123 H Carbon Dioxide 22 Anion Gap 12 BUN 44 H Creatinine 0.95 Estim Creat Clear Calc 54.8 Estimated GFR > 60 POC Glucose 275 H Random Glucose 337 H Calcium 7.9 L Random Vancomycin 8.7 L 09/05/21 09/06/21 09/06/21 23:29 01:58 06:04 Sodium 153 H 152 H Potassium 3.7 3.7 Chloride 122 H 120 H Carbon Dioxide 21 L 22 Anion Gap 14 14 BUN 40 H 36 H Creatinine 0.85 0.82 Estim Creat Clear Calc 61.3 63.5 Estimated GFR > 60 > 60 POC Glucose 288 H Random Glucose 322 H 330 H Calcium 8.0 L 7.7 L Random Vancomycin 09/06/21 09/06/21 09/06/21 08:28 14:29 15:29 Sodium 151 H Potassium 3.3 Chloride 118 H Carbon Dioxide 22 Anion Gap 14 BUN 30 H Creatinine 0.75 Estim Creat Clear Calc 69.4 Estimated GFR > 60 POC Glucose 283 H 255 H Random Glucose 250 H Calcium 8.0 L Random Vancomycin Microbiology Microbiology Results: Microbiology 09/02/21 18:15 Blood - Venous Blood Culture - Preliminary No growth after 48 hours. 09/02/21 18:00 Blood - Venous Blood Culture - Preliminary No growth after 48 hours. 09/02/21 22:35 Urine Catheterized - Straight Catheter Urine Culture - Final No growth. Procedures Date of Service Date of Service: 09/06/21 Assessment & Plan Assessment and plan (1) NELLY (acute kidney injury): Status: Acute Assessment and Plan: 1. NELLY: resolved 2.HyperNa: FWD REC: cont FW replacement; avoid NToxins Time Spent With Patient Time: Total time spent is greater than 50% in coordination of care (as documented) at patient's floor/unit and/or counseling patient: Progress Note: Quality Stroke Does the patient have a stroke diagnosis?: No
[2021-09-06 19:23] VITALS: BP 118/53; PULSE 126; RESP 14; TEMP 37.4; O2SAT 98
[2021-09-06] MEDS: Atorvastatin Calcium 40 MG TABLET PO (21:28)
[2021-09-06 23:15] LABS: Anion Gap 13 (12-20); Blood Urea Nitrogen 31 mg/dL (9-16); Calcium 8.1 mg/dL (8.4-10.2); Carbon Dioxide 23 mmol/L (22-29); Chloride 115 mmol/L (96-108); Creatinine Clr Calc Pharmacy 63.5; Estimated Glomerular Filt Rate > 60; Glucose Random 331 mg/dL (60-115); Potassium 3.4 mmol/L (3.3-5.1); Sodium 148 mmol/L (135-145)
[2021-09-06 23:39] VITALS: BP 123/64; PULSE 111; RESP 16; TEMP 37.5; O2SAT 100
[2021-09-07 02:45] LABS: Glucose, Whole Blood 230 mg/dL (60-115)
[2021-09-07 03:24] VITALS: BP 100/68; PULSE 109; RESP 16; TEMP 37.2; O2SAT 98
[2021-09-07 07:23] LABS: Hematocrit 33.7 % (42.0-52.0); Mean Corpuscular HGB Conc 32.6 g/dl (31.0-36.0); Mean Corpuscular Hemoglobin 32.2 pg (27.0-33.0); Mean Corpuscular Volume 98.5 fL (80.0-98.0); Mean Platelet Volume 13.2 fL (9.4-12.4); PLT CLUMP 1; Red Blood Count 3.42 X10*6/uL (4.60-5.80); Red Cell Distribution Width 13.5 % (11.0-16.0)
[2021-09-07 07:32] VITALS: BP 134/64; PULSE 112; RESP 16; TEMP 36.8; O2SAT 98
[2021-09-07 07:37] LABS: Anion Gap 13 (12-20); Blood Urea Nitrogen 29 mg/dL (9-16); Calcium 7.5 mg/dL (8.4-10.2); Carbon Dioxide 20 mmol/L (22-29); Chloride 118 mmol/L (96-108); Creatinine Clr Calc Pharmacy 71.3; Estimated Glomerular Filt Rate > 60; Glucose Random 265 mg/dL (60-115); Potassium 4.1 mmol/L (3.3-5.1); Sodium 147 mmol/L (135-145)
[2021-09-07] MEDS: Benztropine Mesylate 0.5 MG TABLET PO ×2 (08:50→22:00)
[2021-09-07] MEDS: Aspirin 81 MG TAB.CHEW PO (08:50)
[2021-09-07] MEDS: 0.9 % Sodium Chloride Flush 3 ML SYRINGE IVFLUSH ×2 (08:50→14:57)
[2021-09-07] MEDS: LORazepam 0.5 MG TABLET PO (08:50)
[2021-09-07] MEDS: Gabapentin 100 MG CAPSULE PO ×2 (08:50→22:00)
[2021-09-07] MEDS: risperiDONE 2 MG TABLET PO ×2 (08:50→22:00)
[2021-09-07 11:17] VITALS: BP 104/56; PULSE 105; RESP 17; TEMP 36.6; O2SAT 98
--- NOTE | 2021-09-07 12:45 | PM.UROCN ---
History of Present Illness Consult details Consult date: 09/07/21 Narrative: Consulting complaint right hydroureteronephrosis 71-year-old male from intermediate facility who was contracted and nonverbal at baseline. Referred for evaluation after poor oral intake and changes in mental status. Has responded well to rehydration with resolution of renal insult. Does have persistent elevated WBC in setting of negative urine culture. Creatinine has resolved to 0.73. No clear etiology for right hydroureteronephrosis. CT scan shows significant constipation and lack of bowel emptying that is displacing the bladder to the right side. Coronal imaging shows dilated sigmoid colon reaching splenic flexure. This would easily displace the ureter. This may also be the source of the elevated white count secondary to a large bacterial load. May benefit from repeat imaging once constipation has resolved. No acute urologic condition Review of Systems Constitutional: Constitutional: Reports as per HPI and Reports no additional constitutional complaints Cardiovascular: Cardiovascular: Reports as per HPI and Reports no additional cardiovascular complaints Respiratory: Respiratory: Reports as per HPI and Reports no additional respiratory complaints Gastrointestinal: Gastrointestinal: Reports as per HPI and Reports no additional gastrointestinal complaints Genitourinary: Genitourinary: Reports as per HPI Musculoskeletal: Musculoskeletal: Reports no additional musculoskeletal complaints and Reports as per HPI Neurologic: Reports system reviewed and no additional complaints, except as documented and Reports as per HPI PMF Past Medical History Medical History (Updated 09/07/21 @ 12:49 by Russell Cuevas MD) Alzheimer's dementia Anxiety Valle esophagus Frontotemporal dementia GERD (gastroesophageal reflux disease) Urinary incontinence Vascular dementia Vitamin D deficiency Social History Social History Household Members: Unknown / Unable to assess Housing: Senior Living Do you presently have visiting nurse or other home services: No (pt is from [facility]) Unable to assess alcohol history related to: Unknown Patient Tobacco Use Status: Tobacco use Unknown Currently Displaying Signs/Symptoms of Drug Intoxication Withdrawal: No Advance Directives: No Advance Directives Information Provided: No Recently lost weight without trying: Unsure How much weight loss: Unsure Nutrition Risks: On aspiration precautions Poor oral hygiene: Yes service: No Current occupational status: disabled Meds Allergies Allergy/AdvReac Type Severity Reaction Status Date / Time No Known Allergies Allergy Verified 09/02/21 17:53 Active Medications: Current Medications Acetaminophen (Acetaminophen Supp 650 Mg Supp.Rect) 650 mg [place] Q6H PRN PRN Reason: Pain, Mild (Pain Scale 1-3) Last Admin: 09/06/21 04:02 Dose: 650 mg Aspirin (Aspirin 81 Mg Tab.Chew) 81 mg PO DAILY [facility] Last Admin: 09/07/21 08:50 Dose: 81 mg Atorvastatin Calcium (Atorvastatin Calcium 40 Mg Tablet) 40 mg PO BEDTIME [facility] Last Admin: 09/06/21 21:28 Dose: 40 mg Benztropine Mesylate (Benztropine Mesylate 0.5 Mg Tablet) 0.5 mg PO BID [facility] Last Admin: 09/07/21 08:50 Dose: 0.5 mg Gabapentin (Gabapentin 100 Mg Capsule) 100 mg PO BID [facility] Last Admin: 09/07/21 08:50 Dose: 100 mg Lactulose (Lactulose 20 Gm/30 Ml Solution) 20 gm PO DAILY [facility] Last Admin: 09/07/21 08:46 Dose: Not Given Lorazepam (Lorazepam 0.5 Mg Tablet) 0.5 mg PO BID [facility] Last Admin: 09/07/21 08:50 Dose: 0.5 mg Omeprazole (Omeprazole 40 Mg Capsule.Dr) 40 mg PO DAILY@0630 [facility] Last Admin: 09/07/21 05:56 Dose: Not Given Ondansetron HCl (Ondansetron Hcl 4 Mg/2 Ml Vial) 4 mg IVPUSH Q8H PRN PRN Reason: Nausea and Vomiting Pharmacy Consult (Consult Rx Perform Med Rec) 1 each MISCELLANE ONCE PRN PRN Reason: Consult order Pharmacy Consult (Consult Rx Vancomycin Dosing) 1 each MISCELLANE DAILY PRN PRN Reason: Consult order Risperidone (Risperidone 2 Mg Tablet) 2 mg PO BID [facility] Last Admin: 09/07/21 08:50 Dose: 2 mg Sodium Chloride (0.9 % Sodium Chloride Flush 3 Ml Syringe) 3 ml IVFLUSH QSHIFT [facility] Last Admin: 09/07/21 08:50 Dose: 3 ml Home Medications Medication Instructions Recorded Confirmed Last Taken Type acetaminophen 500 mg tablet 1,000 mg PO TID 09/02/21 09/02/21 09/01/21 History benztropine 0.5 mg tablet 0.5 mg PO BID 09/02/21 09/02/21 09/01/21 History cholecalciferol (vitamin D3) 1,250 1,250 mcg PO QMONTH 09/02/21 09/02/21 08/31/21 History mcg (50,000 unit) capsule gabapentin 400 mg capsule 400 mg PO TID 09/02/21 09/02/21 09/01/21 History lactulose 10 gram/15 mL oral 30 ml PO DAILY 09/02/21 09/02/21 09/01/21 History solution lorazepam 1 mg tablet 1 mg PO TID 09/02/21 09/02/21 09/01/21 History omeprazole 40 mg capsule,delayed 40 mg PO DAILY 09/02/21 09/02/21 09/01/21 History release risperidone 2 mg tablet 2 mg PO BID 09/02/21 09/02/21 09/01/21 History Physical Exam Vital Signs: Vital Signs: Last Vital Signs Temp 98 F 09/07/21 11:17 Pulse 105 H 09/07/21 11:17 Resp 17 09/07/21 11:17 BP 104/56 L 09/07/21 11:17 Pulse Ox 98 09/07/21 11:17 O2 Del Method 09/07/21 11:17 BMI result Body Mass Index 19.9 Const: General: cooperative, healthy appearing, comfortable and no acute distress Orientation/consciousness: patient oriented x3 HEENT: Face and sinus: Yes normal facial exam Mouth: moist mucous membranes Neck: Neck: Yes normal visual inspection, Yes full ROM and Yes trachea midline Chest: Chest palpation & inspection: normal inspection of the chest Resp: Effort & Inspection: normal respiratory effort, able to speak in complete sentences and no respiratory distress GI: Inspection: Yes normal to inspection Back/Spine/Pelvis: Cervical Spine: normal cervical lordosis Thoracic/Lumbar Spine: thoracic and lumbar spine normal to inspection Skin: General skin exam: no rashes or lesions noted Neuro: General: patient oriented x3, tone normal and moves all extremities Extrem: General: Yes normal to inspection and Yes capillary refill normal Results Labs Result diagrams: 09/07/21 07:02 09/07/21 07:02 Labs: Abnormal lab results 09/06/21 09/06/21 09/06/21 Range/Units 14:29 15:29 22:29 WBC (4.8-10.8) X10*3/uL RBC (4.60-5.80) X10*6/uL Hgb (14.0-18.0) g/dl Hct (42.0-52.0) % MCV (80.0-98.0) fL MPV (9.4-12.4) fL Sodium 151 H 148 H (135-145) mmol/L Chloride 118 H 115 H (96-108) mmol/L Carbon Dioxide (22-29) mmol/L BUN 30 H 31 H (9-16) mg/dL POC Glucose 255 H (60-115) mg/dL Random Glucose 250 H 331 H (60-115) mg/dL Calcium 8.0 L 8.1 L (8.4-10.2) mg/dL 09/07/21 09/07/21 09/07/21 Range/Units 02:40 07:02 07:02 WBC 16.0 H (4.8-10.8) X10*3/uL RBC 3.42 L (4.60-5.80) X10*6/uL Hgb 11.0 L (14.0-18.0) g/dl Hct 33.7 L (42.0-52.0) % MCV 98.5 H (80.0-98.0) fL MPV 13.2 H (9.4-12.4) fL Sodium 147 H (135-145) mmol/L Chloride 118 H (96-108) mmol/L Carbon Dioxide 20 L (22-29) mmol/L BUN 29 H (9-16) mg/dL POC Glucose 230 H (60-115) mg/dL Random Glucose 265 H (60-115) mg/dL Calcium 7.5 L D (8.4-10.2) mg/dL Short CBC 09/07/21 Range/Units 07:02 WBC 16.0 H (4.8-10.8) X10*3/uL Hgb 11.0 L (14.0-18.0) g/dl Hct 33.7 L (42.0-52.0) % Plt Count TNP BMP 09/06/21 09/06/21 09/07/21 14:29 22:29 07:02 Sodium 151 H 148 H 147 H Potassium 3.3 3.4 4.1 D Chloride 118 H 115 H 118 H Carbon Dioxide 22 23 20 L BUN 30 H 31 H 29 H Creatinine 0.75 0.82 0.73 Calcium 8.0 L 8.1 L 7.5 L D Urine 09/02/21 Range/Units 22:35 Urine Color YELLOW Urine Appearance CLEAR Urine pH 5.5 (5.0-8.0) Ur Specific [place] >= 1.030 H (1.005-1.025) Urine Protein NEG (NEG-TRACE) MG/DL Urine Glucose (UA) 100 H (NEG) MG/DL All other labs normal. Assessment and Plan (1) Hydroureteronephrosis: Status: Acute Plan Suggest reassessment after resolution of constipation Procedures Date of Service Date of Service: 09/07/21
[2021-09-07 15:17] VITALS: BP 106/60; PULSE 105; RESP 16; TEMP 37.3; O2SAT 97
[2021-09-07 15:35] LABS: Anion Gap 13 (12-20); Blood Urea Nitrogen 31 mg/dL (9-16); Calcium 7.5 mg/dL (8.4-10.2); Carbon Dioxide 22 mmol/L (22-29); Chloride 117 mmol/L (96-108); Creatinine Clr Calc Pharmacy 72.3; Estimated Glomerular Filt Rate > 60; Glucose Random 242 mg/dL (60-115); Potassium 3.4 mmol/L (3.3-5.1); Sodium 149 mmol/L (135-145)
--- NOTE | 2021-09-07 16:04 | HO.PM.IMPN ---
Subjective Subjective Date of Service: 09/07/21 Interval History: Seen and evaluated this morning Poorly responsive to physical stimuli Sodium dropped to 149 No reported overnight events Review of Systems Review of Systems: Yes Unobtainable due to mental status Physical Exam Vital Signs: Vital Signs: Last Vital Signs Temp 99.2 F 09/07/21 15:17 Pulse 105 H 09/07/21 15:17 Resp 16 09/07/21 15:17 BP 106/60 09/07/21 15:17 Pulse Ox 97 09/07/21 15:17 O2 Del Method 09/07/21 15:17 BMI result Body Mass Index 19.9 Const: Other: Constitutional : Difficult to arouse, frail and cachectic, contracted Neck : Normal inspection, Supple Cardiovascular : RRR, no JVP, no lower extremity edema Respiratory : fair bilateral air entry, no crackles, wheezes or rhonchi Gastrointestinal: soft, lax, Normal bowel sounds, Non tender Skin : Warm, Dry Neurological : Difficult to arouse, nonverbal, contracted, not following commands, Objective Data Active Medications Acetaminophen (Acetaminophen Supp 650 Mg Supp.Rect) 650 mg [place] Q6H PRN PRN Reason: Pain, Mild (Pain Scale 1-3) Last Admin: 09/06/21 04:02 Dose: 650 mg Documented By: RADHA Aspirin (Aspirin 81 Mg Tab.Chew) 81 mg PO DAILY [facility] Last Admin: 09/07/21 08:50 Dose: 81 mg Documented By: KEL Atorvastatin Calcium (Atorvastatin Calcium 40 Mg Tablet) 40 mg PO BEDTIME [facility] Last Admin: 09/06/21 21:28 Dose: 40 mg Documented By: RADHA Benztropine Mesylate (Benztropine Mesylate 0.5 Mg Tablet) 0.5 mg PO BID [facility] Last Admin: 09/07/21 08:50 Dose: 0.5 mg Documented By: KEL Gabapentin (Gabapentin 100 Mg Capsule) 100 mg PO BID [facility] Last Admin: 09/07/21 08:50 Dose: 100 mg Documented By: KEL Lactulose (Lactulose 20 Gm/30 Ml Solution) 20 gm PO DAILY [facility] Last Admin: 09/07/21 08:46 Dose: Not Given Documented By: KEL Non-Admin Reason: Physician Held Med Lorazepam (Lorazepam 0.5 Mg Tablet) 0.5 mg PO BID [facility] Last Admin: 09/07/21 08:50 Dose: 0.5 mg Documented By: KEL Omeprazole (Omeprazole 40 Mg Capsule.) 40 mg PO DAILY@0630 [facility] Last Admin: 09/07/21 05:56 Dose: Not Given Documented By: RADHA Non-Admin Reason: unable to crush Ondansetron HCl (Ondansetron Hcl 4 Mg/2 Ml Vial) 4 mg IVPUSH Q8H PRN PRN Reason: Nausea and Vomiting Pharmacy Consult (Consult Rx Perform Med Rec) 1 each MISCELLANE ONCE PRN PRN Reason: Consult order Pharmacy Consult (Consult Rx Vancomycin Dosing) 1 each MISCELLANE DAILY PRN PRN Reason: Consult order Risperidone (Risperidone 2 Mg Tablet) 2 mg PO BID [facility] Last Admin: 09/07/21 08:50 Dose: 2 mg Documented By: KEL Sodium Chloride (0.9 % Sodium Chloride Flush 3 Ml Syringe) 3 ml IVFLUSH QSHIFT [facility] Last Admin: 09/07/21 14:57 Dose: 3 ml Documented By: DANY Labs CBC & Chem 7: 09/07/21 07:02 09/07/21 14:21 Labs: Laboratory Results - last 24 hr 09/06/21 09/07/21 09/07/21 22:29 02:40 07:02 MCV MCH MCHC RDW Plt Count MPV Absolute Nucleated RBC Nucleated RBC % (auto) Anion Gap 13 13 Estim Creat Clear Calc 63.5 71.3 Estimated GFR > 60 > 60 POC Glucose 230 H Random Glucose 331 H 265 H Calcium 8.1 L 7.5 L D 09/07/21 09/07/21 07:02 14:21 MCV 98.5 H MCH 32.2 MCHC 32.6 RDW 13.5 Plt Count TNP MPV 13.2 H Absolute Nucleated RBC 0.000 Nucleated RBC % (auto) 0.0 Anion Gap 13 Estim Creat Clear Calc 72.3 Estimated GFR > 60 POC Glucose Random Glucose 242 H Calcium 7.5 L Assessment and Plan (1) Hydroureteronephrosis: Status: Acute (2) Multifactorial dementia: Status: Acute (3) Constipation: Status: Acute (4) Hypernatremia: Status: Acute (5) NELLY (acute kidney injury): Status: Acute Plan This is a 71 year old male with a PMH dementia -- multiple types, chronically contracted and non-verbal who presents to the ED with decreased oral intake and responsiveness of several days duration. He is noted to be severely dehydrated with NELLY and hypernatremia. He will be admitted for further work up. 1. NELLY 2/2 Severe dehydration 1. Hypernatremia Kidney function improving sodium level trending down to 149 Continue IV fluid D5 at want to live cc/hour Follow BMP Nephrology input appreciated Follow intake and output 2. SIRS Leukocytosis and tachycardia no definitive source, could be secondary to severe constipation and dehydration CT abdomen showing significant amount of stool with evidence of stercoral colitis Discontinue zosyn / vancomcyin as cultures negative having bowel movement hold on laxatives Monitor for any fever 3. Toxic/Metabolic encephalopathy due to hypernatremia , medications, advanced dementia CT head negative for any acute findings but intermediate age stroke Speech evaluated the patient, pureed diet started Neurology input appreciated, consider comfort measures 4. Hyperglycemia HbA1c is 6.5 Elevated sugar from dextrose water 5. Hyperbilirubinemia benign abdominal exam To trend 6. Mood Restart his home medications at the lower doses for now DVT pptx SCDs for thrombocytopenia The patient will need overnight hospital stay to continue treatment for NELLY and significant hypernatremia, and the possibility of sepsis with IV antibiotics/IVF/specialty consultation and to monitor response. This cannot be done in a less acute setting. goals of care discussed last with the patient daughter and HCP. She with preferred to keep the patient as full code for the time being and discuss goals of care after he goes back to the facility with staff over there. Quality Stroke Does the patient have a stroke diagnosis?: No VTE Prior VTE?: No VTE Risk Level:: Medical - moderate - high VTE Device Contraindication: Treatment Not Tolerated VTE Drug Contraindication: N/A - Med Ordered
[2021-09-07 16:31] LABS: Glucose, Whole Blood 205 mg/dL (60-115)
[2021-09-07] MEDS: Dextrose 5 % 1,000 ML 125 ML IVCONT (16:41)
[2021-09-07 19:04] VITALS: BP 115/61; PULSE 84; RESP 16; TEMP 37.4; O2SAT 95
--- NOTE | 2021-09-07 19:49 | PM.PNNEP ---
Subjective Subjective Date of Service: 09/07/21 Interval history: Seen and evaluated this morning Poorly responsive to physical stimuli No reported overnight events Physical Exam Vital Signs: Vital Signs: Last Vital Signs Temp 99.3 F 09/07/21 19:04 Pulse 84 09/07/21 19:04 Resp 16 09/07/21 19:04 BP 115/61 09/07/21 19:04 Pulse Ox 95 09/07/21 19:04 O2 Del Method 09/07/21 19:04 BMI result Body Mass Index 19.9 Const: Other: Nonverbal Neck: Neck: Yes supple Resp: Auscultation: diminished lung sounds Cardio: Rate: regular rate GI: Palpation (GI): Soft to palpation Neuro: Other: Non verbal Objective Data Labs CBC & Chem 7: 09/07/21 07:02 09/07/21 14:21 Labs: Laboratory Results - last 24 hr 09/06/21 09/07/21 09/07/21 22:29 02:40 07:02 WBC RBC Hgb Hct MCV MCH MCHC RDW Plt Count MPV Absolute Nucleated RBC Nucleated RBC % (auto) Sodium 148 H 147 H Potassium 3.4 4.1 D Chloride 115 H 118 H Carbon Dioxide 23 20 L Anion Gap 13 13 BUN 31 H 29 H Creatinine 0.82 0.73 Estim Creat Clear Calc 63.5 71.3 Estimated GFR > 60 > 60 POC Glucose 230 H Random Glucose 331 H 265 H Calcium 8.1 L 7.5 L D 09/07/21 09/07/21 09/07/21 07:02 14:21 16:25 WBC 16.0 H RBC 3.42 L Hgb 11.0 L Hct 33.7 L MCV 98.5 H MCH 32.2 MCHC 32.6 RDW 13.5 Plt Count TNP MPV 13.2 H Absolute Nucleated RBC 0.000 Nucleated RBC % (auto) 0.0 Sodium 149 H Potassium 3.4 Chloride 117 H Carbon Dioxide 22 Anion Gap 13 BUN 31 H Creatinine 0.72 Estim Creat Clear Calc 72.3 Estimated GFR > 60 POC Glucose 205 H Random Glucose 242 H Calcium 7.5 L Microbiology Microbiology Results: Microbiology 09/02/21 18:15 Blood - Venous Blood Culture - Preliminary No growth after 48 hours. 09/02/21 18:00 Blood - Venous Blood Culture - Preliminary No growth after 48 hours. 09/02/21 22:35 Urine Catheterized - Straight Catheter Urine Culture - Final No growth. Procedures Date of Service Date of Service: 09/07/21 Assessment & Plan Assessment and plan (1) NELLY (acute kidney injury): Status: Acute Assessment and Plan: Hypernatremic with significant free water deficit and NELLY-improved NELLY due to volume contraction and tubular injury & right hydro Medications need to be dosed for GFR Shall closely monitor lytes and renal functions Time Spent With Patient Time: Total time spent is greater than 50% in coordination of care (as documented) at patient's floor/unit and/or counseling patient: Progress Note: Quality Stroke Does the patient have a stroke diagnosis?: No
[2021-09-07 20:33] LABS: Glucose, Whole Blood 246 mg/dL (60-115)
[2021-09-07] MEDS: LORazepam 0.5 MG TABLET 0.25 MG PO (22:00)
[2021-09-07] MEDS: Atorvastatin Calcium 40 MG TABLET PO (22:00)
[2021-09-08] VITALS: BP 132/76; PULSE 114; RESP 18; TEMP 37.7; O2SAT 97
[2021-09-08] MEDS: Dextrose 5 % 1,000 ML 125 ML IVCONT ×2 (01:33→09:58)
[2021-09-08] MEDS: Acetaminophen Supp 650 MG SUPP.RECT PR (03:19)
[2021-09-08 04:00] VITALS: BP 128/64; PULSE 108; RESP 20; TEMP 37.8; O2SAT 97
[2021-09-08 04:42] VITALS: TEMP 37.6
[2021-09-08 05:16] LABS: Glucose, Whole Blood 286 mg/dL (60-115)
[2021-09-08 07:14] VITALS: BP 143/65; PULSE 98; RESP 18; TEMP 36.1; O2SAT 100
[2021-09-08 07:37] LABS: Glucose, Whole Blood 249 mg/dL (60-115)
[2021-09-08 07:49] LABS: Anion Gap 13 (12-20); Blood Urea Nitrogen 27 mg/dL (9-16); Calcium 7.8 mg/dL (8.4-10.2); Carbon Dioxide 20 mmol/L (22-29); Chloride 115 mmol/L (96-108); Creatinine Clr Calc Pharmacy 73.3; Estimated Glomerular Filt Rate > 60; Glucose Random 324 mg/dL (60-115); Potassium 3.9 mmol/L (3.3-5.1); Sodium 144 mmol/L (135-145)
[2021-09-08 08:56] LABS: Hemoglobin 10.6 g/dl (14.0-18.0); Mean Corpuscular HGB Conc 32.1 g/dl (31.0-36.0); Mean Corpuscular Volume 99.7 fL (80.0-98.0); Mean Platelet Volume 12.6 fL (9.4-12.4); Red Blood Count 3.31 X10*6/uL (4.60-5.80); Red Cell Distribution Width 13.7 % (11.0-16.0); White Blood Count 13.7 X10*3/uL (4.8-10.8)
[2021-09-08 08:58] LABS: Platelet Count 90 X10*3/uL (160-400)
--- NOTE | 2021-09-08 09:03 | MHC.SL.SWA ---
Speech Pathologist Impression: Risk of Aspiration Due to: Neurological Condition Poor PO Intake Reduced Cognition Dysphasia Diet Status: Puree (NDD1) with THIN liquids, Pills CRUSHED in PUREE Liquid Consistency and Strategies for Safe Swallow: Liquid Intake Recommendation: Thin Liquid Intake Strategies: Small Sips Solid Food Consistency: Dietary Recommendations: Pureed (NDD1) Additional Modifications to Solid Foods: Pt on diet of PUREED solids (NDD1) and THIN liquids, pills CRUSHED in PUREE. Confirmed with nurse from [facility] this morning- This is pt's baseline diet. Pt requires total 1:1 assistance feeding and monitoring for any clinical signs of aspiration with PO intake. Recommend frequent oral care, strict aspiration precautions with PO intake. One bite at a time, ensure oral cavity is clear before presenting more bites. Pt may not open mouth with verbal command, but does open mouth reflexively when presented with an empty spoon. Improved coordination when pt drank by teaspoon. Pt was able to sip by controlled cup, but there was some spillage anteriorly. Ensure pt is sitting upright 90 degrees for PO intake. Frequent oral care before and after PO intake. Sent [place] Message to MD, RN, RD w/ recommendations. OPTOMETRY TEACHER will continue to follow. Oral Medication Intake: Crushed with Puree Please contact the pharmacy regarding appropriate crushable or liquid drug formulations that are available whenever modified delivery is recommended. Compensatory Strategies and Precautions to be Taken for Safe Swallow: Sitting Upright (90 deg) Liquids from Cup Liquids from Spoon Alternate Liquids/Solids Supervision While Eating and Drinking for Safe Swallow: Total Assistance (1:1) Foods to Avoid: Swallowing Recommended Treatments: Compens. Strategy Educat. Recommendation for Speech: Inpatient Speech Therapy Comment: Pt seen mid-day. Pt was lying in bed, eyes open, but unresponsive to verbal interaction, questions. Pt is positioned in bed with ample support, remains contracted, head nodding down. Head of bed was raised for trials, pt. noticed to grimace, so positioned head of bed at approximately 60 degrees. Pt was given oral care at start, accepted tooth brush w/ mouthwash, noted to suck on brush. Pt offered water in tsp amount, tsp placed at mouth, pt's mouth moved and he was encouraged to take liquid, however no liquid was taken from spoon with some spillage noted. Pt was offered liquid by straw, with patient closing mouth on straw, sucking liquid 1/[address] up straw, but unable to produce adequate suction to draw liquid to mouth. Pt give tsp amounts of puree, with patient minimally opening mouth to take trace amount from spoon, producing delayed oral phase, mildly delayed swallow, no clinical signs of aspiration. On repeat presentation, Pt appeared to hold pudding in mouth for prolonged period, then produced swallow. Pt closed mouth to additional presentations of puree. Recommend continue diet of PUREE (NDD1), with THIN LIQUIDS. Pt has been remarkably lethargic, eating minimally, and is difficult to feed due to positioning needs. Pt may benefit from smaller, more frequent meals to encourage PO intake. Frequency/Duration: Date Range for Service Req: Timeline to reassess: Home Day Care Provider Clinican/Clinical Fellow: No Supervisory Statement: I have reviewed and agree with the student/clinical fellow's documentation: N/A Speech Language Pathologist: Verónica Ahmadi M.A., CCC-OPTOMETRY TEACHER
[2021-09-08] MEDS: 0.9 % Sodium Chloride Flush 3 ML SYRINGE IVFLUSH (09:58)
--- NOTE | 2021-09-08 11:05 | PM.DS ---
DS: Providers Provider Date of Service: 09/08/21 Date of admission: 09/03/21 09:16 Primary care physician: Carolyn Sanz MD Consults: 09/03/21 09:19 Consult to Nephrology Routine Consulting Provider: Titi Easley Reason for consultation: NELLY, hypernatremia 09/03/21 10:54 Consult to Neurology Routine Consulting Provider: [facility] Reason for consultation: stroke 09/03/21 12:32 Consult to Urology Routine Consulting Provider: Russell Cuevas Reason for consultation: NELLY + hydro; no stones DS: Diagnosis Discharge Diagnosis (1) NELLY (acute kidney injury): Status: Acute DS: Summary Hospital Course Hospital Course: admission note HPI This is a 71 year old male, who is contracted and non-verbal at baseline, presents to [facility] ED from local snf facility. Due to the patients baseline condition, history is obtained from the ED providers / triage notes.? After several days of poor oral intake and changes in mental status, he has been sent to the SNF. Per triage note, there were no reports of fever. Upon arrival to the ED the patient was found to be febrile with a TMax of 101. He was tachycardic in the 120 with stable BP. Chest XR was clear. Blood work revealed luekocytosis, NELLY with SCr over 3 and severe hypernatremia with SNa 168. Sugars were over 400.? He was given 30cc/kg fluid bolus, IV vancomcyin/zosyn, IV insulin. He has been started on 1/2 normal saline @ 125 cc/hr and now will be admitted for further care. Hospital course The patient was admitted to the hospital for treatment of acute kidney injury, hypernatremia and severe constipation. Responded well to treatment with IV fluid of dextrose water over the course of hospital stay as his sodium level dropped down over the course of 4 days. His mentation improved a little as he became able to eat but he is not interactive, not responding or following any recommendations. Noted to significant constipation at time of presentation. Responded well to p.o. lactulose and suppositories as he is having bowel movement up to 2 times a day. Lactulose was held today. Toxic metabolic encephalopathy at time of presentation. CT scan showed an evidence of chronic ischemic changes with most recent intermediate to his thalamic. Evaluated by Neurology who recommended comfort measures only as the patient poor baseline and severe dementia. Started on baby aspirin and statin. Evaluated by speech therapy as his diet was advanced to pureed. Noticed to have SIRS at time of presentation with no clear evidence of infection. Believed to be secondary to dehydration, constipation and hydronephrosis. No fever documented during the hospital stay. He was kept on empiric antibiotic and the blood cultures came back negative S CT abdomen pelvis was negative for any source of infection as well. hydronephrosis was evaluated by urologist who recommended no intervention as it is likely a result of severe constipation. Repeated ultrasound showed no evidence of hydronephrosis Goals of care discussed last with the patient daughter and HCP.? She with preferred to keep the patient as full code for the time being and discuss goals of care after he goes back to the facility with staff over there. Encourage water intake Up to 1.5 L daily Give lactulose with target of 1 bowel motion a day, hold for diarrhea to have more discussions about goals of care. Time Spent with Patient Time attestation: Total time spent providing and/or coordinating discharge services: Discharge coordination time: Greater than 30 minutes Quality: Safe Use of Opioids Does Pt have an Active Cancer Diagnosis on the Problem List?: No Quality: Stroke Does the patient have a stroke diagnosis?: No Physical Exam Vital Signs: Vital Signs: Last Vital Signs Temp 96.9 F 09/08/21 07:14 Pulse 98 09/08/21 07:14 Resp 18 09/08/21 07:14 BP 143/65 H 09/08/21 07:14 Pulse Ox 100 09/08/21 07:14 O2 Del Method 09/08/21 07:14 BMI result Body Mass Index 19.9 Const: Other: Constitutional : Difficult to arouse, frail and cachectic, contracted Neck : Normal inspection, Supple Cardiovascular : RRR, no JVP, no lower extremity edema Respiratory : fair bilateral air entry, no crackles, wheezes or rhonchi Gastrointestinal: soft, lax, Normal bowel sounds, Non tender Skin : Warm, Dry Neurological : Difficult to arouse, nonverbal, contracted, not following commands, DS: Data Data Completed and Pending Labs on day of discharge: Laboratory Results - last 24 hr 09/07/21 09/07/21 09/07/21 14:21 16:25 20:28 WBC RBC Hgb Hct MCV MCH MCHC RDW Plt Count MPV Absolute Nucleated RBC Nucleated RBC % (auto) Sodium 149 H Potassium 3.4 Chloride 117 H Carbon Dioxide 22 Anion Gap 13 BUN 31 H Creatinine 0.72 Estim Creat Clear Calc 72.3 Estimated GFR > 60 POC Glucose 205 H 246 H Random Glucose 242 H Calcium 7.5 L 09/08/21 09/08/21 09/08/21 03:30 07:10 07:19 WBC RBC Hgb Hct MCV MCH MCHC RDW Plt Count MPV Absolute Nucleated RBC Nucleated RBC % (auto) Sodium 144 Potassium 3.9 Chloride 115 H Carbon Dioxide 20 L Anion Gap 13 BUN 27 H Creatinine 0.71 Estim Creat Clear Calc 73.3 Estimated GFR > 60 POC Glucose 286 H 249 H Random Glucose 324 H Calcium 7.8 L 09/08/21 08:31 WBC 13.7 H RBC 3.31 L Hgb 10.6 L Hct 33.0 L MCV 99.7 H MCH 32.0 MCHC 32.1 RDW 13.7 Plt Count 90 L MPV 12.6 H Absolute Nucleated RBC 0.000 Nucleated RBC % (auto) 0.0 Sodium Potassium Chloride Carbon Dioxide Anion Gap BUN Creatinine Estim Creat Clear Calc Estimated GFR POC Glucose Random Glucose Calcium Imaging CT scan - abdomen: Radiologist's impression: ITS Impressions Chest X-Ray 09/02/21 18:19 IMPRESSION: No acute pulmonary process. Abdomen/Pelvis CT 09/03/21 10:18 IMPRESSION: 1. Large amount of rectal stool content with wall thickening and perirectal fat stranding suggesting stercoral colitis in the appropriate clinical context. 2. Moderate right hydroureteronephrosis up to the level of the urinary bladder, possibly due to reflux or mass effect from the significantly distended rectum as a discrete obstructive calculus is not identified. 3. Query patchy airspace opacities in the lung bases, limitedly assessed due to motion, correlate for signs of a respiratory infectious or inflammatory process. Head CT 09/03/21 10:18 IMPRESSION: Age indeterminate small infarct in the left thalamus. No prior images are available for comparison. For further characterization recommend correlation with an MR of the brain if clinically deemed appropriate. This critical result was discussed with Thong Tavarez MD at 09/03/2021 10:52 AM and it was ascertained that the content and urgency of the report was understood at the time of direct communication. Discharge Plan Discharge Patient Disposition: [facility] Discharge Diagnosis: acute kidney injury Hypernatremia Constipation Referrals: Carolyn Sanz MD [Primary Care Provider] - 1 Week Discharge Medications: New atorvastatin 40 mg Tablet 40 mg PO BEDTIME 30 Days Qty: 30 0RF aspirin 81 mg Tablet,Chewable 81 mg PO DAILY 30 Days Qty: 30 0RF lactulose 10 gram/15 mL solution 10 g PO DAILY Qty: 473 0RF Continued benztropine 0.5 mg Tablet 0.5 mg PO BID gabapentin 400 mg Capsule 400 mg PO TID omeprazole 40 mg Capsule,Delayed Release(Dr/Ec) 40 mg PO DAILY acetaminophen 500 mg Tablet 1,000 mg PO TID risperidone 2 mg Tablet 2 mg PO BID lorazepam 1 mg Tablet 1 mg PO TID lactulose 10 gram/15 mL Solution 30 ml PO DAILY cholecalciferol (vitamin D3) 1,250 mcg (50,000 unit) Capsule 1,250 mcg PO QMONTH Discharge Orders: Discharge Order (Routine); Ordered 09/08/21 Ordered By: Kell Armenta Diet: pureed diet with Ensure Activity on Discharge: As tolerated Stand Alone Forms: Patient Portal Discharge page Care Plan Goals: Read below Health Concerns: Read below Plan of Treatment: Read below Assessment: admitted to the hospital for dehydration, acute kidney injury and hypernatremia. Responded well to treatment with IV fluid as kidney function improved and sodium level improved back to normal. Encourage water intake Give lactulose with target of 1 bowel motion a day, hold for diarrhea
--- NOTE | 2021-09-08 11:58 | MHC.CM.PN ---
Addendum entered by Estefany Cook 09/08/21 13:51: Discharge information and negative covid test result, have been faxed to [facility]. Transportation is scheduled for 3pm [facility]. The guardian has been notified of the discharge this afternoon. They have been notified that transportation is scheduled for 3pm [facility]. Original Note: Male 71 DX AMS He will return to [facility] today via BLS. DC info will be faxed to the facility as requested. Covid test and finalized dc paperwork pending.
[2021-09-08 11:59] VITALS: BP 130/60; PULSE 92; RESP 18; TEMP 36.9; O2SAT 99
[2021-09-08 12:07] LABS: Glucose, Whole Blood 267 mg/dL (60-115)
--- NOTE | 2021-09-08 12:39 | MHC.SLORD ---
Speech Language Pathology Order Status: Attempted to see Patient in A.M., Patient was asleep, remained extremely lethargic when roused, not appropriate for trials of po this a.m. will continue to follow.
[2021-09-08 13:00] LABS: COVID-19 Test Negative (Negative); IDNOW Serial# 9DB6401D
--- NOTE | 2021-09-08 14:42 | MHC.CLN ---
F/U PO INTAKE 50% X 3 MEALS DIET RX: PUREED -APPROPRIATE PT RECEIVING ENSURE TID TO INCREASE KCALS AND PROMOTE WOUND HEALING SUPP PROVIDES 1050KCALS, 60G PROTEIN CONTINUE TO MONITOR PO INTAKE CLOSELY
== END 2021-09-08 15:15 | DRG 469 ==
LOC: HO.ED 20:14 → HO.EDOVER 09-03 09:40 → HO.IMC 09-04 15:19
PROVIDERS: Admitting Provider Family Medicine; Emergency Provider Emergency Medicine; PCP Internal Medicine; Visit Provider Student in an Organized Health Care Education/Training Program
DX: N17.0 Acute kidney failure with tubular necrosis (principal); E87.0 Hyperosmolality and hypernatremia; R65.10 Systemic inflammatory response syndrome (SIRS) of non-infectious origin without acute organ dysfunction; E87.1 Hypo-osmolality and hyponatremia; N13.30 Unspecified hydronephrosis; G30.8 Other Alzheimer's disease; F02.80 Dementia in other diseases classified elsewhere, unspecified severity, without behavioral disturbance, psychotic disturbance, mood disturbance, and anxiety; E86.0 Dehydration; K59.00 Constipation, unspecified; R73.9 Hyperglycemia, unspecified; F41.9 Anxiety disorder, unspecified; Z86.73 Personal history of transient ischemic attack (TIA), and cerebral infarction without residual deficits; Z20.822 Contact with and (suspected) exposure to COVID-19; Z79.82 Long term (current) use of aspirin; Z79.899 Other long term (current) drug therapy
CPT/HCPCS: 36415; 70450; 71045; 74176; 76775; 80048; 80061; 80076; 80202; 81001; 81003; 82947; 83036; 83605; 84484; 85025; 85027; 85610; 85730; 87040; 87086; 87635; 92526; 92610; 93005; 96361; 96365; 96366; 96375; 99285; C1758; J2543; J3370